=== PATIENT | male | born 1975 | race Two or more races ===

== ENCOUNTER 2022-10-30 14:57 | Emergency (ER) | payer OTHER, SELFPAY ==
--- NOTE | ~2022-10-30 | XR_ITS ---
EXAMINATION: XR WRIST, LEFT CLINICAL INFORMATION: Pain COMPARISON: None available. TECHNIQUE: Four views of the left wrist. FINDINGS: Bone alignment is normal. No fracture or dislocation. Joint spaces are normal. There is a soft tissue swelling adjacent to the ulnar side of the wrist. There is a defect in the soft tissues suggestive of soft tissue trauma. There are several small radiopaque densities in the soft tissues questionable for soft tissue foreign bodies, largest measuring 2 mm. There are clustered round soft tissue densities adjacent to the second metacarpal shaft. XR/XR wrist LT min 3V IMPRESSION: Trauma to the soft tissues on the ulnar side of the wrist and question soft tissue foreign bodies.
[2022-10-30 15:02] VITALS: BP 161/110; PULSE 73; RESP 18; TEMP 36.2; O2SAT 95; BMI 29.7
--- NOTE | 2022-10-30 15:04 | ED_ITS ---
HPI - General Adult General Chief complaint: Wound/Laceration Stated complaint: bleeding open wound Time Seen by Provider: 10/30/22 15:32 Related Data Previous Rx's Medication Instructions Recorded doxycycline hyclate 100 mg capsule 100 mg PO BID #10 caps 10/30/22 Allergies Allergy/AdvReac Type Severity Reaction Status Date / Time No Known Allergies Allergy Verified 10/30/22 15:07 [facility] Social History Social History Advance Directives: No Advance Directives Information Provided: No Physical Exam ED Vital Signs: Vital Signs - 24 hr 10/30/22 15:02 10/30/22 16:45 Temperature 97.2 F 98.2 F Pulse Rate 73 68 Respiratory Rate 18 18 Blood Pressure 161/110 H 152/93 H Pulse Oximetry 95 98 Oxygen Delivery Method Room Air Room Air BMI result Body Mass Index 29.7 Course Course Course Narrative: RME performed by Ban Linton PA-C. Patient is a 47 year old assigned male at presenting to the emergency department with a left wrist laceration. Patient was using a roll grinder when it slipped and caught his left wrist. Patient states that he is having some numbness and tingling in his left pinky. Patient states that he has had 1 shot of alcohol today, not eaten, and is up to date on his tetanus status. Imaging ordered. Patient placed back in the waiting room pending room availability and results. Patient was seen, evaluated, and treated by Becca HOUSER who created and signed her own note. Please refer to her note for the course of this patient's care. Medications Administered Discontinued Medications Generic Name Dose Route Start Last Admin Trade Name Kodyq PRN Reason Stop Dose Admin Bacitracin 1 appl 10/30/22 16:38 10/30/22 16:48 Bacitracin Oint 0.9 Gm Packet TOPICAL 10/30/22 16:39 1 appl ONCE ONE Administration Protocol Lidocaine HCl 5 ml 10/30/22 15:48 10/30/22 16:05 Lidocaine Hcl 1 % Mpf 5 Ml Vial INFILTRATI 10/30/22 15:49 5 ml ONCE ONE Administration Oxycodone HCl 5 mg 10/30/22 15:39 10/30/22 15:45 Oxycodone Hcl Immed Release 5 Mg Tablet PO 10/30/22 15:40 5 mg ONCE ONE Administration Discharge Plan Discharge Clinical Impression: Laceration of left wrist Qualifiers: Encounter type: initial encounter Qualified Code(s): S61.512A - Laceration without foreign body of left wrist, initial encounter Patient Disposition: Home, Self-Care Instructions: Laceration (DC) Additional Instructions: You have been evaluated in the emergency department today for two lacerations to your left wrist. Your lacerations were repaired in the emergency department with sutures. Please keep the area surrounding the laceration clean and dry and keep dressing in place for the next 24 hours. After that please change the dressing and assess the wound daily. Keep the area out of direct sunlight for the next 6 months to help prevent scarring. You should have the sutures removed in 7-10 days. If you develop fever, redness, swelling at the site of your laceration, or thick yellow drainage please come back to the ER for a wound check. Please contact the orthopedic office within two days for a follow up appointment. You are being prescribed prophylactic antibiotics to prevent infection. Please complete the full course of antibiotics as prescribed. Prescriptions: New doxycycline hyclate 100 mg capsule 100 mg PO BID Qty: 10 0RF Referrals: [facility] [Provider Group] Interventions: ED Discharge Assessment Last Done: 10/30/22 17:34 Discharge Date/Time: 10/30/22 17:35
[2022-10-30] MEDS: oxyCODONE HCl Immed Release 5 MG TABLET PO (15:45)
[2022-10-30] MEDS: Lidocaine HCl 1 % MPF 5 ML VIAL INFILTRATI (16:05)
--- NOTE | 2022-10-30 16:05 | PC.NURSE ---
report given to Nadia, RN pt transported to ED 21 call avila within reach
--- NOTE | 2022-10-30 16:18 | PC.NURSE ---
pt wound was irrigated and cleased with NS and betadine, pt medicated with 5mg oxycodone for 10/10 pain- suture setup at bedside
--- NOTE | 2022-10-30 16:39 | ED_ITS ---
HPI - Wound/Laceration General Chief Complaint: Wound/Laceration Stated Complaint: bleeding open wound Time Seen by Provider: 10/30/22 15:32 Source: patient Mode of arrival: ambulatory Limitations: no limitations History of Present Illness HPI narrative: Patient is a 47-year-old male presenting to the emergency department with injury to left wrist. He states that he was using an angle cutter grinder to saw a rusted miya t off of his wheel so that he could change his tire when the angle cutter grinder slipped and hit him in the wrist. States that he wrapped his arm in a shirt. Reports some numbness to lateral aspect of left hand as well as dorsal surface and lateral surface of left 5th finger. Denies decreased range of motion. States his last tetanus shot was a few months ago with his PCP. Denies any other injuries. Onset (ago): minute(s) Extremity Location: left: wrist Place: home Patient tetanus UTD: Yes Context: accidental Associated symptoms: pain and loss of feeling/numbness Treatments prior to arrival: bandage Related Data Previous Rx's Medication Instructions Recorded doxycycline hyclate 100 mg capsule 100 mg PO BID #10 caps 10/30/22 Allergies Allergy/AdvReac Type Severity Reaction Status Date / Time No Known Allergies Allergy Verified 10/30/22 15:07 Review of Systems Review of Systems: As per HPI. Yes all other systems are reviewed and are negative Constitutional: Constitutional: Reports as per HPI [facility] Social History Social History Advance Directives: No Advance Directives Information Provided: No Physical Exam Vital Signs: Vital Signs: Last Vital Signs Temp 97.2 F 10/30/22 15:02 Pulse 73 10/30/22 15:02 Resp 18 10/30/22 15:02 BP 161/110 H 10/30/22 15:02 Pulse Ox 95 10/30/22 15:02 O2 Del Method Room Air 10/30/22 15:02 BMI result Body Mass Index 29.7 Vital signs have been reviewed and appear to be correct. Blood pressure elevated,likely secondary to pain. Heart rate normal. Respiratory rate normal. Temperature normal. Oxygen saturation normal. Const: General: cooperative, healthy appearing and no acute distress [place] ation/consciousness: oriented to person, oriented to place, oriented to time and patient oriented x3 Limitations: no limitations HEENT: Head: Yes normocephalic and Yes atraumatic Ears: external ears normal General nose exam: Normal external nose present Face and sinus: Yes face symmetric Mouth: oropharynx normal and moist mucous membranes Throat: Yes uvula midline Eyes: Pupils: Equal, round and reactive pupils present Neck: Neck: Yes normal visual inspection and Yes supple Resp: Effort & Inspection: normal respiratory effort and able to speak in complete sentences Auscultation: clear to auscultation bilaterally Cardio: Rate: regular rate Rhythm: regular rhythm Heart sounds: S1 normal heart sound present and S2 normal heart sound present GI: Palpation (GI): Soft to palpation and nontender Auscultation: normoactive bowel sounds : General: Yes no CVA tenderness Back/Spine/Pelvis: Back: no CVA tenderness Skin: General skin exam: elasticity normal and turgor normal Trauma: laceration left lateral wrist linear, involves subcutaneous tissue, motor nerve function intact and sensation intact (decreased sensation as documented under extremities section; 3cm laceration and 1.5cm laceration) Neuro: General: oriented to person, oriented to place, oriented to time, patient oriented x3, moves all extremities, no focal motor deficits and CN's II- XI intact bilaterally Cranial nerves: Yes Equal, round and reactive pupils present Cognition (Neuro): normal cognition Extrem: General: Yes full ROM, Yes no pedal edema and Yes no calf tenderness Left upper extremity: wrist (lacerations/abrasion) and hand Details: normal to inspection, normal capillary refill, neuromotor exam normal, neurosensory exam abnormal Details: ulnar nerve sensory function abnormal Details: decreased light touch sensation (lateral aspect of left hand) and digital nerve sensory function abnormal Location: in the 5th digit (dorsal and lateral aspect of finger), tendon exam normal and normal ROM of fingers Psych: Mental Status: mental status grossly normal Affect: normal affect Thought process: Normal thought process present Medications Administered Discontinued Medications Generic Name Dose Route Start Last Admin Trade Name Freq PRN Reason Stop Dose Admin Lidocaine HCl 5 ml 10/30/22 15:48 10/30/22 16:05 Lidocaine Hcl 1 % Mpf 5 Ml Vial INFILTRATI 10/30/22 15:49 5 ml ONCE ONE Administration Oxycodone HCl 5 mg 10/30/22 15:39 10/30/22 15:45 Oxycodone Hcl Immed Release 5 Mg Tablet PO 10/30/22 15:40 5 mg ONCE ONE Administration Medical Decision Making Medical Decision Making [facility] Narrative: Patient is a 47-year-old male presenting to the emergency department with injury to left wrist. On exam patient is awake, A+Ox3, VS WNL, afebrile, normal neurological exam without focal deficits, 2 lacerations to ulnar aspect of left wrist, proximal laceration 1.5 cm and superficial, distal laceration 3cm and involves subcutaneous layer, minor abrasion between lacerations, decreased light touch sensation to dorsal and lateral aspect of 5th finger and lateral edge of left hand. Given reported symptoms and physical exam findings, initial differential includes laceration, abrasion, fracture. X-ray notable for soft tissue trauma,no fracture or dislocation. My interpretation is in agreement with the radiologist's interpretation. Lacerations repaired as per procedure notes. Tetanus did not need to be updated at today's visit. Will refer patient to Orthopedics for follow-up. Return precautions discussed at bedside. Patient instructed to follow-up with PCP as well. Differential Diagnosis Differential Diagnoses: The differential diagnosis associated with the presentation includes As per MDM. Admission/Observation Consideration of admission/observation: Escalation of care including a dmission/observation considered Considered on arrival given extent of injury. Independent Interpretation I performed an independent interpretation of an: Plain X-Ray Interpretation: Soft tissue trauma on ulnar side of left wrist and no fracture dislocation Radiology Impression Discussion of test interpretation with radiology: I have reviewed the radiologist's reading. Radiologist Impression: FINDINGS: Bone alignment is normal. No fracture or dislocation. Joint spaces are normal. There is a soft tissue swelling adjacent to the ulnar side of the wrist. There is a defect in the soft tissues suggestive of soft tissue trauma. There are several small radiopaque densities in the soft tissues questionable for soft tissue foreign bodies, largest measuring 2 mm. There are clustered round soft tissue densities adjacent to the second metacarpal shaft.? XR/XR wrist LT min 3V IMPRESSION: Trauma to the soft tissues on the ulnar side of the wrist and question soft tissue foreign bodies. ? External Record Review External record reviewed: Inpatient record, Office record and Outpatient record Prescription Management I considered prescription management with: Pain Medication and Antibiotic Procedures Laceration Laceration 1: Site: upper extremity Side (If applicable): left Size (cm): 3 Description: linear Depth: simple, single layer Local Anesthetic: lidocaine 1% Amount of anesthesia used (mL): 3 Pre-repair: wound explored, irrigated extensively and deep structures intact Skin layer closed with: other (prolene) Size (cm): 5-0 Number of sutures: 7 Technique: simple, interrupted Laceration 2: Site: upper extremity Side (If applicable): left Size (cm): 1.5 Description: linear Depth: simple, single layer Local Anesthetic: lidocaine 1% Amount of anesthesia used (mL): 1 Pre-repair: wound explored, irrigated extensively and deep structures intact Skin layer closed with: other (prolene) Size (cm): 5-0 Number of sutures: 3 Technique: simple, interrupted Discharge Plan Discharge Clinical Impression: Laceration of left wrist Qualifiers: Encounter type: initial encounter Qualified Code(s): S61.512A - Laceration without foreign body of left wrist, initial encounter Patient Disposition: Home, Self-Care Instructions: Laceration (DC) Additional Instructions: You have been evaluated in the emergency department today for two lacerations to your left wrist. Your lacerations were repaired in the emergency department with sutures. Please keep the area surrounding the laceration clean and dry and keep dressing in place for the next 24 hours. After that please change the dressing and assess the wound daily. Keep the area out of direct sunlight for the next 6 months to help prevent scarring. You should have the sutures removed in 7-10 days. If you develop fever, redness, swelling at the site of your laceration, or thick yellow drainage please come back to the ER for a wound check. Please contact the orthopedic office within two days for a follow up appointment. You are being prescribed prophylactic antibiotics to prevent infection. Please complete the full course of antibiotics as prescribed. Prescriptions: New doxycycline hyclate 100 mg capsule 100 mg PO BID Qty: 10 0RF Referrals: [facility] [Provider Group]
[2022-10-30 16:45] VITALS: BP 152/93; PULSE 68; RESP 18; TEMP 36.8; O2SAT 98
[2022-10-30] MEDS: Bacitracin Oint 0.9 GM PACKET 1 APPL TOPICAL (16:48)
== END 2022-10-30 17:35 | disposition home or self-care (01) ==
PROVIDERS: Emergency Provider Emergency Medicine
DX: S61.512A Laceration without foreign body of left wrist, initial encounter (principal); W31.89XA Contact with other specified machinery, initial encounter; Y93.9 Activity, unspecified; Y92.9 Unspecified place or not applicable; Y99.9 Unspecified external cause status
CPT/HCPCS: 12002; 73110; 99284

== ENCOUNTER 2022-11-10 10:09 | Outpatient (AMB) | payer OTHER, SELFPAY ==
[2022-11-10 10:13] VITALS: BMI 29.6
--- NOTE | 2022-11-10 10:13 | A.OFFVIS_ITS ---
Intake Vital Signs 11/10/22 10:13 Height 5 ft 7 in Weight 189 lb BMI 29.6 Handedness Right Intake Visit Reasons: New Pt - Lt Wrist Pain, DOI 10/30/22 Intake Note: Douglas is a 47 year old right hand dominant male who presents today as a new patient for a evaluation for his left wrist pain, DOI 10/30/22. Patient reports using an angle roll contour grinder to saw a rusted bolt off of his wheel so that he could change his tire when the angle roll contour grinder slipped it hit his left wrist. He states some tingling near the injured area. Allergies No Known Allergies Allergy (Verified 11/10/22 10:15) HPI New Pt - Lt Wrist Pain, DOI 10/30/22 HPI Details 47-year-old right hand dominant male who presents in the office today, as a new patient, for an evaluation of left wrist lacerations. The patient presented to the ED on 10/30/2022 status post using an angle roll contour grinder that slipped on the rusted bolt hitting his wrist. The lacerations wounds were explored, irrigated extensively and deep structures intact. He was prescribed doxycycline hyclate 100 mg PO BID. He confirms tingling near the injury site. Laceration one: 3 cm linear with 7 sutures, reported by the ED. Laceration two: 1.5 cm linear with 3 sutures, reported by the ED. [facility] Social History (Updated 11/10/22 @ 10:16 by Bienvenido Corrales) Alcohol intake: current Patient Tobacco Use Status: Former Tobacco user Current occupational status: employed Current occupation: maintenance/ right hand dominant Review of Systems Const All systems reviewed & are unremarkable except as noted in HPI and below Physical Exam Vital Signs: BMI result Body Mass Index 29.6 Const General: cooperative and no acute distress Orientation/consciousness: patient oriented x3 Resp Effort & Inspection: normal respiratory effort and able to speak in complete sentences Cardio Peripheral pulses: Peripheral pulses 2+ throughout Skin General skin exam: no rashes or lesions noted Neuro General: patient oriented x3 Extrem Other: Left wrist: Two laceration sites along the lateral aspect of the wrist on the ulnar side. Laceration one is roughly 1.5cm and contains 3 sutures. Laceration t wo is roughly 3cm in length. No erythema or drainage. No signs of infection. Able to flex and extend, ulnar and radial deviation. Left hand: Normal to inspection. No ecchymosis, erythema, or edema. Able to perform full finger flexion, extension, abduction, adduction, finger cross, okay sign, and thumbs up without deficit. Able to make a closed fist. Sensation intact. Capillary refill is brisk. Radial pulse intact. Assessment & Plan Assessment & Plan (1) Laceration of left wrist: Code(s): S61.512A - Laceration without foreign body of left wrist, initial encounter Qualifiers: Encounter type: initial encounter Qualified Code(s): S61.512A - Laceration without foreign body of left wrist, initial encounter Plan Mr. Braden is a 47-year-old right hand dominant male who presents in the office today, as a new patient, for an evaluation of left wrist lacerations. The patient presented to the ED on 10/30/2022 status post using an angle roll contour grinder that slipped on the rusted bolt hitting his wrist. The lacerations wounds were explored, irrigated extensively and deep structures intact. He was prescribed doxycycline hyclate 100 mg PO BID. He confirms tingling near the injury site. Laceration one: 3 cm linear with 7 sutures, reported by the ED. Laceration two: 1.5 cm linear with 3 sutures, reported by the ED. The first laceration sutures will remain intact. The second laceration sutures will be removed every other one. The remain sutures in the second laceration will remain intact. He was educated on signs of infection, which are as follows but not limited to erythema, edema, drainage, or warmth. If he is to experience any of these symptoms he is to contact the office immediately or present to the ED. Follow up will be in 1 week with anticipation of removal of remaining sutures, or sooner if needed. X-rays of the left wrist, obtained on 10/30/2022, revealed: Trauma to the soft tissues on the ulnar side of the wrist and question soft tissue foreign bodies. Patient Instructions: Scribed for Hiral Jacob PA-C by Sherrell Pang special forces medical sergeant, on 11/10/2022 at 10:11 am, EST. Your attestation Coding Level of Care Code New Pt Level 3 (09447) Diagnoses Laceration of left wrist S61.512A Encounter type: initial encounter
== END 2022-11-10 10:37 | disposition home or self-care (01) ==
PROVIDERS: Visit Provider Physician Assistant
DX: S61.512A Laceration without foreign body of left wrist, initial encounter (principal)
CPT/HCPCS: 99203

== ENCOUNTER → 2022-11-10 10:09 | Outpatient (BNVA) | payer OTHER, SELFPAY | PROVIDERS: Visit Provider Physician Assistant | DX: S61.512A Laceration without foreign body of left wrist, initial encounter (principal) | CPT/HCPCS: 99202 ==

== ENCOUNTER 2022-11-16 13:55 | Outpatient (AMB) | payer OTHER, SELFPAY ==
--- NOTE | 2022-11-16 13:57 | MHC.OFFVIS ---
Intake Vital Signs 11/16/22 14:02 Height 5 ft 7 in Weight 189 lb BMI 29.6 Handedness Right Intake Visit Reasons: Lt Wrist Pain, DOI 10/30/22 Intake Note: Douglas is a 47 year old right hand dominant male who presents today for his 1 week follow up for his left wrist pain, DOI 10/30/22. Patient reports some itching and sharp pain. He states that he is having numbness on the dorsal aspect of the ring and pinky finger per patient. Patient states having tingling near the injury. Allergies No Known Allergies Allergy (Verified 11/10/22 10:15) HPI Lt Wrist Pain, DOI 10/30/22 HPI Details Douglas is a 47 year old right hand dominant male who presents today as a new patient for a evaluation for his left wrist pain, DOI 10/30/22. Patient reports using an angle pulp grinder and blender to saw a rusted bolt off of his wheel so that he could change his tire when the angle pulp grinder and blender slipped it hit his left wrist. At his last appt on 11/10/22 some of the sutures were removed. He has completed all antibiotics. Denies any increase in redness, swelling, drainage, warmth or pain. [facility] Social History Alcohol intake: current Patient Tobacco Use Status: Former Tobacco user Current occupational status: employed Current occupation: maintenance/ right hand dominant Review of Systems Const All systems reviewed & are unremarkable except as noted in HPI and below Physical Exam Vital Signs: BMI result Body Mass Index 29.6 Const General: cooperative, healthy appearing and no acute distress Orientation/consciousness: patient oriented x3 Resp Effort & Inspection: normal respiratory effort and able to speak in complete sentences Cardio Rate: regular rate Peripheral pulses: Peripheral pulses 2+ throughout GI Palpation (GI): Soft to palpation Skin General skin exam: no rashes or lesions noted Lesions: no lesions Rashes: no rashes Neuro General: patient oriented x3 Extrem Other: Left wrist: Two laceration sites along the lateral aspect of the wrist on the ulnar side. Laceration one is roughly 1.5cm and contains 3 sutures. Laceration two is roughly 3cm in length. No erythema or drainage. No signs of infection. Able to flex and extend, ulnar and radial deviation. Left hand: Normal to inspection. No ecchymosis, erythema, or edema. Able to perform full finger flexion, extension, abduction, adduction, finger cross, okay sign, and thumbs up without deficit. Able to make a closed fist. Sensation intact. Capillary refill is brisk. Radial pulse intact. Assessment & Plan Assessment & Plan (1) Laceration of left wrist: Code(s): S61.512A - Laceration without foreign body of left wrist, initial encounter Qualifiers: Encounter type: initial encounter Qualified Code(s): S61.512A - Laceration without foreign body of left wrist, initial encounter Plan Douglas is a 47 year old right hand dominant male who presents today as a new patient for a evaluation for his left wrist pain, DOI 10/30/22. Patient reports using an angle pulp grinder and blender to saw a rusted bolt off of his wheel so that he could change his tire when the angle pulp grinder and blender slipped it hit his left wrist. At his last appt on 11/10/22 some of the sutures were removed. He has completed all antibiotics. Denies any increase in redness, swelling, drainage, warmth or pain. The remained of the sutures were removed in the office today. I educated the patient on any signs of infection which include but are not limited to increase in redness, swelling, drainage, warmth or pain he should contact our office immediately or report to the ED for evaluation. Patient understands and accepts. Follow-up is prn, sooner if needed. Coding Level of Care Code Est Pt Level 3 (31602) Diagnoses Laceration of left wrist S61.512A Encounter type: initial encounter
[2022-11-16 14:02] VITALS: BMI 29.6
== END 2022-11-16 14:18 | disposition home or self-care (01) ==
PROVIDERS: Visit Provider Physician Assistant
DX: S61.512A Laceration without foreign body of left wrist, initial encounter (principal)
CPT/HCPCS: 99213

== ENCOUNTER → 2022-11-16 13:55 | Outpatient (BNVA) | payer OTHER, SELFPAY | PROVIDERS: Visit Provider Physician Assistant | DX: M25.532 Pain in left wrist (principal); S61.512A Laceration without foreign body of left wrist, initial encounter; W31.1XXA Contact with metalworking machines, initial encounter; Y93.89 Activity, other specified; Y92.9 Unspecified place or not applicable; Y99.9 Unspecified external cause status | CPT/HCPCS: 99212 ==

== ENCOUNTER 2023-01-14 08:32 | Outpatient (REF) | payer OTHER, SELFPAY | END 2023-01-14 08:33 | disposition home or self-care (01) | LOC: HO.HOSX 08:32 | PROVIDERS: Visit Provider Physician Assistant | DX: M17.12 Unilateral primary osteoarthritis, left knee (principal) | CPT/HCPCS: 73560; 73565; 99212 ==

== ENCOUNTER 2023-01-14 09:20 | Outpatient (AMB) | payer OTHER, SELFPAY ==
[2023-01-14 09:25] VITALS: BMI 29.6
--- NOTE | 2023-01-14 09:25 | MHC.OFFVIS ---
Intake Vital Signs 01/14/23 09:25 Height 5 ft 7 in Weight 189 lb BMI 29.6 Intake Visit Reasons: New Prob- Lt knee pain Intake Note: Douglas is a 47 year old male who presents today as a new patient for a evaluation of his left knee pain, L ACL REPAIR, 04/23/11 KI. Patient reports he played basket ball about 3 weeks ago, he landed wrong and he felt a sharp pain in his left knee. Pain is on both sides of the knee per patient. He reports his pain is worse when sitting down. Allergies No Known Allergies Allergy (Verified 01/14/23 09:25) HPI New Prob- Lt knee pain HPI Details 47-year-old right hand dominant male who presents in the office today for an evaluation of left knee pain. The patient reports he was playing basketball about 3 weeks ago, when he landed wrong and felt a sharp pain in the left knee. He states the pain is on both sides of the knee. He states the pain increases with sitting down. He states the knee has been getting better since injuring the left knee. He has a surgical history of a left knee ACL repair on 04/23/[address] Shook. [facility] Social History Alcohol intake: current Patient Tobacco Use Status: Former Tobacco user Current occupational status: employed Current occupation: maintenance/ right hand dominant Review of Systems Const All systems reviewed & are unremarkable except as noted in HPI and below Physical Exam Vital Signs: BMI result Body Mass Index 29.6 Const General: cooperative and no acute distress Orientation/consciousness: patient oriented x3 Resp Effort & Inspection: normal respiratory effort and able to speak in complete sentences Cardio Peripheral pulses: Peripheral pulses 2+ throughout Skin General skin exam: no rashes or lesions noted Neuro General: patient oriented x3 Extrem Other: Left knee: Normal to inspection. No ecchymosis, erythema, or joint effusion. Mild tenderness to palpation to the medial or lateral joint lines. Full knee extension and flexion. Negative Rissa's. Negative anterior drawer. NVI. Assessment & Plan Assessment & Plan (1) Osteoarthritis of left knee: Code(s): M17.12 - Unilateral primary osteoarthritis, left knee Qualifiers: Osteoarthritis type: unspecified Qualified Code(s): M17.12 - Unilateral primary osteoarthritis, left knee Plan Mr. Braden is a 47-year-old right hand dominant male who presents in the office today for an evaluation of left knee pain. The patient reports he was playing basketball about 3 weeks ago, when he landed wrong and felt a sharp pain in the left knee. He states the pain is on both sides of the knee. He states the pain increases with sitting down. He states the knee has been getting better since injuring the left knee. He has a surgical history of a left knee ACL repair on 04/23/[address] Shook. I discussed the role of physical therapy to work on ROM and strengthening of the left knee. He has agreed to attend. Should the knee not continue to improve we might consider an MRI. In the event his symptoms have resolved he can call and cancel his follow up appointment. Follow up will be in 6 weeks, or sooner if needed. X-rays of the left knee obtained while in the office today and reviewed by me, Hiral Jacob PA-C, revealed no evidence of acute fracture of dislocation. Revealed osteoarthritis. Orders: Orders XR knee LT 2V Today M25.569 - Pain in unspecified knee XR knee standing BI Today M25.569 - Pain in unspecified knee Patient Instructions: Scribed for Hiral Jacob PA-C by Sherrell Pang director of medical review, on 01/14/2023 at 9:22 am, EST. Coding Level of Care Code Est Pt Level 3 (70998) Diagnoses Osteoarthritis of left knee, unspecified osteoarthritis type M17.12 Osteoarthritis type: unspecified
== END 2023-01-14 09:57 | disposition home or self-care (01) ==
PROVIDERS: Visit Provider Physician Assistant
DX: M17.12 Unilateral primary osteoarthritis, left knee (principal)
CPT/HCPCS: 99213

== ENCOUNTER 2023-09-26 21:09 | Inpatient (IN) | payer OTHER, SELFPAY ==
--- NOTE | ~2023-09-26 | XR_ITS ---
EXAMINATION: XR SHOULDER, RIGHT CLINICAL INFORMATION: Pain. COMPARISON: None available. TECHNIQUE: Single frontal view of the right shoulder. FINDINGS: The bones and soft tissues are normal. No fracture. Glenohumeral and acromioclavicular alignment is anatomic with normal joint space. No abnormal soft tissue calcifications. XR/XR shoulder RT 1V IMPRESSION: Normal right shoulder.
--- NOTE | ~2023-09-26 | MR_ITS ---
EXAMINATION: MR BRAIN WITHOUT AND WITH CONTRAST CLINICAL INFORMATION: Fall. Seizure. COMPARISON: None available. TECHNIQUE: MRI of the brain was obtained using routine sequences without and following the administration of 9 mL of Gadavist intravenous contrast. FINDINGS: No focal restricted diffusion is demonstrated to suggest acute or subacute cerebral ischemia. No evidence of acute or chronic hemorrhagic products on heme-sensitive imaging. The nonspecific scattered periventricular and deep white matter T2 FLAIR hyperintensities. The ventricles are normal in morphology and size. No abnormal mass effect. No midline shift. The hippocampi are symmetric in size, contour, and signal intensity. The temporal horns appear symmetric. Normal appearance of the pituitary gland. Normal positioning of the cerebellar tonsils. Normal arterial and venous vascular flow voids are present. No abnormal contrast enhancement. Normal, homogeneous marrow signal. Mild mucosal thickening of the paranasal sinuses. No signal abnormalities within the mastoids. MR/MR head/brain wo/w con IMPRESSION: 1. No acute intracranial abnormalities. No abnormal intracranial enhancement. 2. Mild nonspecific white matter changes. 3. No additional MRI abnormalities to explain the patient's spells.
[2023-09-26 21:13] VITALS: BP 118/86; PULSE 100; O2SAT 96
--- NOTE | 2023-09-26 21:26 | ED.GENADULT ---
HPI - General Adult General Stated complaint: Seizures Time Seen by Provider: 09/26/23 21:13 Source: patient and EMS Mode of arrival: EMS Limitations: no limitations History of Present Illness ED Provider: Dr. Mariaelena Daly HPI narrative: patient comes to the emergency room from [facility] in [place]. earlier today in the morning, patient was the bleachers watching his son play soccer. As patient was sitting, he had tonic-clonic seizure, hit the bleachers With his right upper leg. seems that patient rolled down four levels of bleachers. patient did hit his head, patient was still seizing. patient did have a postictal state. Patient is not on any blood thinners per patient and family. patient states that he has no history of seizures in the past, this is the 1st time that he has a seizure During adulthood. Patient states that he drinks alcohol 1 or 2 beers maybe twice a week. However, earlier today I spoke with the ED physician at [facility] in [place], the patient's was present and reported that the patient is a Daily heavy alcohol drinker, and he may not have been drinking for the last couple of days due to the trip to [place]. After the 1st tonic-clonic seizure, patient was transferred to the hospital in [place], patient was silvestre scanned, head CT neck CT chest abdomen pelvis within normal limits. Also a CT scan of the right leg was done since the patient had pain and the thigh seemed tense, which showed large breasts hematoma without fracture and compartment syndrome not suspected. Patient states that he did have a seizure when he was a child due to heat . in [place], the ED physician tried admitting the patient to their facility. However, due to lack of Neurology back up, the hospitalist requested to have the patient transfer. The family requested to have the patient transferred to [facility] since the family leaves in [place] and they do not have the means to keep going back and forth [place] and [place]. It is believed that the patient may have had an alcohol withdrawal seizure. after speaking with Dr. Peraza from the ED in [place] and confirming our inpatient bed situation with our charge nurse, I accepted the transfer. At this time, patient is awake, alert and oriented x3, states that he has pain in the upper leg but it is tolerable Related Data Home Medications ?Medication ?Instructions ?Recorded ?Confirmed No Known Home Meds 11/10/22 11/10/22 Allergies Allergy/AdvReac Type Severity Reaction Status Date / Time No Known Allergies Allergy Verified 09/26/23 21:29 Review of Systems Review of Systems: Constitutional : No Weight loss, No Fever, No Chills, No Night Sweats, No Fatigue, No Malaise ENT/Mouth : No Hearing loss, No Ear Pain, No Nasal Congestion, No Sinus Pain, No Hoarseness, No sore throat, No Rhinorrhea, No Swallowing Difficulty Eyes: No Eye Pain, No Swelling, No Redness, No Foreign Body, No Discharge, No Vision Changes Cardiovascular : No Chest Pain, No SOB, No Dyspnea on Exertion, No Orthopnea, No Edema, No Palpitations Respiratory : No Cough, No Sputum, No Wheezing, No Smoke Exposure, No Dyspnea Gastrointestinal : No Nausea, No Vomiting, No Diarrhea, No Constipation, No abdominal Pain, No Hematochezia, No Melena Genitourinary : no irregular bleeding, No Dysuria, No Urinary Frequency, No Hematuria, No Urinary Incontinence, No Urgency, No Flank Pain, No Urinary Flow Changes, No Hesitancy Musculoskeletal : complaining of right upper thigh pain Skin : No Skin Lesions, No rash Neuro : No Weakness, No Numbness, No Paresthesias, No Loss of Consciousness, No Dizziness, No Headache complaining of 2 seizures earlier today Psych : No Anxiety/Panic, No Depression, No SI/HI/AH/VH, No Social Issues, Heme/Lymph: No Bruising, No Bleeding,No Lymphadenopathy Endocrine : No Polyuria, No Polydipsia, No Temperature Intolerance [facility] Past Medical History Medical History Alcohol abuse Social History Social History Alcohol intake: current Alcohol intake frequency: 3 or more drinks per day Alcohol type: wine and hard liquor Patient Tobacco Use Status: Former Tobacco user Current occupational status: employed Current occupation: maintenance/ right hand dominant Physical Exam ED Const Other: Appearance: Alert. Oriented X3. No acute distress. Eyes: Pupils equal, round and reactive to light. ENT: Pharynx normal. Neck: Normal inspection. Neck supple. No lymph nodes noted. No crepitus CVS: Normal heart rate and rhythm. Pulses normal. Normal S1 and S2 Respiratory: No respiratory distress. Breath sounds normal. No Wheezing. No rales Abdomen: Soft and nontender. No rigidity. No distention. Skin: Skin warm and dry. Normal skin color. Normal skin turgor. small ecchymosis and abrasion to the forehead Extremities: patient's left leg is tense, however patient has no numbness tingling or pain below the thigh, compartment syndrome is not suspected at this time Neuro: Oriented X 3. No motor deficit. No sensory deficit. Moving all extremities. No slurred speech. CN 2 through 12 grossly intact Psych: calm, cooperative, normal affect Course Course Course Narrative: - earlier today in the hospital in [place], patient received 4 mg of Ativan and 1500 mg of Keppra - since then, patient has not had any tonic-clonic seizures. - Patient was started on phenobarb protocol - I discussed the patient with Dr. Montenegro, patient being admitted - we will obtain our own set of labs. - Medical Decision Making Medical Decision Making [facility] Narrative: - CT scan of the leg from previous hospital shows a 15.6 x 6.8 x 4.6 cm intramuscular hematoma within the vastus intermedius muscle at the anterior right thigh - I reviewed the images from the CD the previous hospital sent us and the radiology report: head CT , cervical spine CT, abdomen pelvis CT do not show any acute abnormality. I reviewed the patient's chest x-ray: No fractures or suspicion for pulmonary contusions - patient has been started on the phenobarb protocol - patient has pain to palpation on the right upper thigh. However, it has not extremity tense to suspect compartment syndrome, no pain numbness or tingling below the thigh in the right distal extremity - Dr. Montenegro accepted the patient Differential Diagnosis Differential Diagnoses: The differential diagnosis associated with the presentation includes ( first-time seizure, alcohol withdrawal seizure) Admission/Observation Consideration of admission/observation: Escalation of care including admission/observation considered Consult Healthcare Provider Management of the patient was discussed with: Hospitalist Lab Data [facility] Lab Attestation statement: I reviewed the patient's lab results. Independent Interpretation I performed an independent interpretation of an: CT Scan Radiology Impression Discussion of test interpretation with radiology: I have reviewed the radiologist's reading. Independent Historian Clinical information obtained from an independent historian. History obtained from or confirmed by: EMS and Other ( ED physician from [place]) Discharge Plan Discharge Clinical Impression: Alcohol withdrawal seizure, Hematoma of right thigh Patient Disposition: Admitted As Inpatient Prescriptions: No Action No Known Home Meds Print Language: Peruvian
[2023-09-26 21:27] VITALS: BP 149/92; PULSE 109; RESP 22; TEMP 37.4; O2SAT 98; BMI 31.1
--- OUTSIDE RECORDS SUMMARY | 2023-09-26 21:39 | XMS_ITS | Continuity of Care Document ---
Author Organization [facility] ter Address [address] [place] [address]- Care Team Providers Care Pulling Unit Operator Name Role Phone Kalyan HOUSER, Ally Pavon Primary Care Physician Encounter [facility] [id number] Date(s): 02/15/23 - 08/22/[address] [address]- Attending Physician: Jasbir Baer MD Admitting Physician: Jasbir Baer MD Allergies, Adverse Reactions, Alerts No Known Allergies Immunizations Given and Recorded Vaccine Date Status Refusal Reason tetanus/diphtheria/pertussis, acel(Tdap) 1 07/24/22 Given 1Result Comment: Tdap [facility]#[id number] Medications PEG-3350 with Electrolytes (Eqv-GoLYTELY) oral powder for reconstitution 240 mL, By Mouth, Every 15 minutes, Split prep method. 1/2 gallon evening prior to colonscopy and 1/2 gallon 6h prior to start of colonoscopy, # 4,000 mL, 0 Refills, Maintenance, 07/14/23 10:37:00 EDT, [id number], Colonosopy Date: .. Start Date: 07/14/23 Status: Ordered Problem List Condition Confirmation Course Effective Dates Status Health St atus Informant Mild atopic dermatitis Confirmed Active Rash of body Confirmed Active High blood pressure determined by examination Confirmed Active Physical exam Confirmed Active Social History Social History Type Response Smoking Status Never (less than 100 in lifetime) entered on: 07/24/22 Sex Patient Care team information Care Team Personnel Name: Ally Biggs NP Position: [facility] PCO Associate Professional Member Role: PCP Address: Address: [address] [place] [address]- Care Team Related Persons Name: RIANA MAGDALENO Address: home [address] [place] [address]
--- OUTSIDE RECORDS SUMMARY | 2023-09-26 21:39 | XMS_ITS | Continuity of Care Document ---
Author Organization [facility] Address [address] [place] [address]- Care Team Providers Care Fisher Spear Name Role Phone Kalyan HOUSER, Ally Pavon Primary Care Physician Encounter [facility] Date(s): 12/30/22 - 03/20/[address] [address] [place] Attending Physician: Jacqueline Story MD Admitting Physician: Jacqueline Story MD Allergies, Adverse Reactions, Alerts No Known Allergies Immunizations Given and Recorded Vaccine Date Status Refusal Reason tetanus/diphtheria/pertussis, acel(Tdap) 1 07/24/22 Given 1Result Comment: Tdap [facility]#[id number] Medications PEG-3350 with Electrolytes (Eqv-GoLYTELY) oral powder for reconstitution See Instructions, split prep method. drink one half the night before procedure at 5pm. drink secondhalf morning of procedure. must finish no later than 3 hours prior to procedure., # 4,000 mL, 0 Refills, Maintenance, 12/31/22 15:20:00 VALERIA BREEN... Start Date: 12/31/22 Status: Ordered Problem List Condition Confirmation Course [...] Associate Professional Member Role: PCP Address: Address: [address] [place] [address]- Care Team Related Persons Name: RIANA MAGDALENO Address: home [address] [place] [address]
--- OUTSIDE RECORDS SUMMARY | 2023-09-26 21:39 | XMS_ITS | Continuity of Care Document ---
Author Organization [facility] New Address [address] [place] [address]- Care Team Providers Care Junior High Math Teacher Name Role Phone Sarai Brunson NP Primary Care Physician [phone] Encounter [facility] Date(s): 07/24/22 - 08/23/22 [facility] Adult [address] [place] [address]- Attending Physician: Admtr, Ar8 Admitting Physician: Admtr, Ar8 Referring Physician: Admtr, Ar8 Allergies, Adverse Reactions, Alerts No Known Allergies Immunizations Given and Recorded Vaccine Date Status Refusal Reason tetanus/diphtheria/pertussis, acel(Tdap) 1 07/24/22 Given 1Result Comment: Tdap [facility]#[id number] Social History Social History Type Response Smoking Status Never (less than 100 in lifetime) entered on: 07/24/22 Sex Patient Care team information Care Team Personnel Name: Sarai Brunson NP Position: S PCO Associate Professional Member Role: PCP Address: Address: [address] [place] [address] [place] [address]- Care Team Related Persons Name: RIANA MAGDALENO Address: home [address] [place] [address]
--- OUTSIDE RECORDS SUMMARY | 2023-09-26 21:39 | XMS_ITS | Continuity of Care Document ---
Author Organization [facility] New Address [address] [place] [address]- Care Team Providers Care Handy Man Name Role Phone Sarai Brunson NP Primary Care Physician [phone] Encounter [facility] Date(s): 06/15/22 - 08/23/22 [facility] Adult [address] [place] [address]- Attending Physician: Sarai Brunson NP Allergies, Adverse Reactions, Alerts No Known Allergies Immunizations Given and Recorded Vaccine Date Status Refusal Reason tetanus/diphtheria/pertussis, acel(Tdap) 1 07/24/22 Given 1Result Comment: Tdap [facility]#[id number] Social History Social History Type Response Smoking Status Never (less than 100 in lifetime) entered on: 07/24/22 Sex Patient Care team information Care Team Personnel Name: Sarai Brunson NP Position: S PCO Associate Professional Member Role: PCP Address: Address: [address] [place] [address] [place] [address]- Care Team Related Persons Name: RIANA MAGDALENO Address: home [address] [place] [address]
--- OUTSIDE RECORDS SUMMARY | 2023-09-26 21:39 | XMS_ITS | Continuity of Care Document ---
Author Organization [facility] Address [address] [place] [address]- Care Team Providers Care Manager House Name Role Phone Kalyan HOUSER, Ally Pavon Primary Care Physician [phone] Encounter [facility] Date(s): 07/14/23 - 08/13/23 [facility] [address] [place] [address]- Allergies, Adverse Reactions, Alerts No Known Allergies Immunizations Given and Recorded Vaccine Date Status Refusal Reason tetanus/diphtheria/pertussis, acel(Tdap) 1 07/24/22 Given 1Result Comment: Tdap [facility]#[id number] Medications PEG-3350 with Electrolytes (Eqv-GoLYTELY) oral powder for reconstitution 240 mL, By Mouth, Every 15 minutes, Split prep method. 1/2 gallon evening prior to colonscopy and 1/2 gallon 6h prior to start of colonoscopy, # 4,000 mL, 0 Refills, Maintenance, 07/14/23 10:37:00 EDT, [facility] #[id number], Colonosopy Date: .. Start Date: 07/14/23 Status: [...] Team Personnel Name: Ally Biggs NP Position: S PCO Associate Professional Member Role: PCP Address: Address: [address] [place] [phone]- [place] Care Team Related Persons Name: RIANA MAGDALENO Address: home [address] [place] [address]
[2023-09-26 21:48] VITALS: BP 145/95; PULSE 105; RESP 17
[2023-09-26] MEDS: PHENobarbitaL sodium 130 MG/ML IM ONCE 317 MG IM (21:49)
--- NOTE | 2023-09-26 22:20 | PM.IMHP ---
History of Present Illness Date of Service: 09/26/23 Chief Complaint: seizure This is a 48-year-old male with no pertinent past medical history and not on prescription medications who was brought to the emergency department for evaluation of seizures. Patient was watching his son play soccer when he had an episode of tonic-clonic seizure. Patient rolled on for levels and hit his head. He was taken to an ER in [place], [place]. Patient stated that he drinks alcohol every day but as per the , patient consumes about 3-4 drinks every day and has not had a drink in the last couple of days due to the [place] trip. Patient had a 2nd episode of seizure in the ER which was witnessed by ER provider in [place]. Hospitalist at [facility] requested transfer due to lack of neurology backup. Patient requested transfer to [facility] as family lives in [place]. Patient complains of right thigh pain at the time of my evaluation. He does not remember what happened but remembers falling down and hitting his head. States he had 1 episode of seizure as a child but is not on any antiepileptics. Admits daily alcohol use but denies any previous alcohol withdrawal. No hallucinations, tremors or anxiety. In the emergency department, patient was initiated on phenobarb protocol. Patient was given 1500 mg IV Keppra and 4 mg IV Ativan at outside facility before being transferred to [facility]. Imaging done at outside facility: -CT right lower extremity-15 cm intramuscular hematoma within the vastus intermedius muscle at the anterior right thigh -CT abdomen/pelvis- No acute findings. Hepatic steatosis -CT head- No acute intracranial findings. Frontal scalp hematoma -CT cervical spine- No acute findings. No fracture Review of Systems Constitutional: Constitutional: Reports no additional constitutional complaints Cardiovascular: Cardiovascular: Reports no additional cardiovascular complaints Respiratory: Respiratory: Reports no additional respiratory complaints Gastrointestinal: Gastrointestinal: Reports no additional gastrointestinal complaints Genitourinary: Genitourinary: Reports no additional male genitourinary complaints Musculoskeletal: Musculoskeletal: Reports arthralgias and Reports joint swelling PMFSH Medical History Alcohol abuse Pertinent family history: No family history of early CAD Social History Alcohol intake: current Alcohol intake frequency: 3 or more drinks per day Alcohol type: wine and hard liquor Patient Tobacco Use Status: Former Tobacco user Smoked in Last 30 Days: No Use of substances other than those prescribed or required for medical reasons: No Advance Directives: No Advance Directives Information Provided: No Do you have a plan to hurt others: No Plan Current occupational status: employed Current occupation: maintenance/ right hand dominant Meds Allergies Allergy/AdvReac Type Severity Reaction Status Date / Time No Known Allergies Allergy Verified 09/26/23 21:29 Active Medications: Current Medications Pharmacy Consult (Consult Rx Etoh Phenob Im/Po) 1 each MISCELLANE ONCE PRN; Protocol PRN Reason: Consult order Phenobarbital (Phenobarbital 15 Mg Tablet) 45 mg PO BID [facility] Stop: 09/28/23 21:01 Phenobarbital (Phenobarbital 30 Mg Tablet) 30 mg PO BID [facility] Stop: 09/30/23 21:01 Phenobarbital (Phenobarbital 15 Mg Tablet) 15 mg PO DAILY [facility] Stop: 10/02/23 09:01 Phenobarbital Sodium (Phenobarbital Sodium 130 Mg/Ml Vial Im Q3hx2) 238 mg IM Q3H MELANIE Stop: 09/27/23 04:01 Home Medications ?Medication ?Instructions ?Recorded ?Confirmed ?Last Taken ?Type No Known Home Meds 11/10/22 11/10/22 Unknown History Physical Exam Vital Signs and Narrative: Vital Signs: Last Vital Signs Temp 99.3 F 09/26/23 21:27 Pulse 105 H 09/26/23 21:48 Resp 17 09/26/23 21:48 BP 145/95 H 09/26/23 21:48 Pulse Ox 98 09/26/23 21:27 O2 Del Method Room Air 09/26/23 21:27 BMI result Body Mass Index 31.1 Middle-aged male lying in bed in no distress Neck supple, no JVD Regular rate and rhythm, S1-S2 heard Regular breath sounds bilaterally, no wheezing or crackles appreciated Abdomen soft nontender, no guarding, no rigidity Patient is awake, alert and oriented to self, place, time and person ; no focal motor deficit Psych: Normal mood Right thigh with swelling which is firm, tenderness present Results Labs 09/26/23 22:36 Assessment and Plan (1) Generalized tonic-clonic seizure: Status: Acute (2) Hematoma of right thigh: Status: Acute Plan This is a 48-year-old male with no pertinent past medical history and not on prescription medications who was brought to the emergency department for evaluation of seizures. #. Seizure, generalized tonic-clonic: ?alcohol withdrawal seizure. Had 2 seizure episodes on the day of presentation. Patient given 1500 mg IV Keppra, evening of 09/25. Consulted Neurology and obtaining EEG #. Right thigh hematoma: CT scan done at outside facility with 15 cm intramuscular hematoma within the vastus intermedius. Consulted General surgery. Analgesics p.r.n. #. Alcohol use disorder: Concern for alcohol withdrawal seizure. Phenobarb protocol initiated in the ER. Initiating thiamine. Monitor CIWA. Consulted Addiction Team #. Elevated transaminases: Hepatic steatosis on abdominal imaging. Outpatient follow-up DVT prophylaxis: Mechanical Full code Admit as inpatient and will require two night minimum hospital stay for evaluation of generalized tonic-clonic seizure and hematoma (as above), which is not possible in a lesser acute setting. Specialist consult pending Quality Stroke Does the patient have a stroke diagnosis?: No VTE Prior VTE?: No VTE Risk Level:: Medical - moderate - high VTE Device Contraindication: Treatment Not Indicated VTE Drug Contraindication: N/A - Med Ordered
[2023-09-26] MEDS: Thiamine HCL 100 MG in 0.9 % Sodium Chloride 100 ML 202 MG IV (22:39)
[2023-09-26] MEDS: traMADoL HCL 50 MG TABLET PO (22:39)
[2023-09-26 23:04] LABS: Ethanol < 10 mg/dL
[2023-09-26 23:05] LABS: Alanine Aminotransferase 66 U/L (0-40); Alkaline Phosphatase 67 U/L (39-117); Anion Gap 15 (12-20); Aspartate Amino Transferase 77 U/L (5-37); Bilirubin Direct 0.6 mg/dL (0.0-0.5); Bilirubin Total 1.7 mg/dL (0.0-1.0); Blood Urea Nitrogen 7 mg/dL (9-16); Calcium 8.8 mg/dL (8.4-10.2); Carbon Dioxide 23 mmol/L (22-29); Chloride 107 mmol/L (96-108); Creatinine Clr Calc Pharmacy 112.3; Estimated Glomerular Filt Rate > 60; Glucose Random 148 mg/dL (60-115); Magnesium 2.1 mg/dL (1.6-2.6); Potassium 3.8 mmol/L (3.3-5.1); Sodium 141 mmol/L (135-145); Total Protein 6.8 g/dL (6.5-8.0)
--- NOTE | 2023-09-27 | EEG_ITS ---
This is a 16-channel EEG with an EKG lead. The patient is reported awake during the tracing. Background EEG rhythm is 16-20 hertz 5-20 microvolt posteriorly, lower amplitude fast anteriorly. Almost continuous EKG artifact is noted. Photic stimulation does not produce any significant abnormality. Hyperventilation is not performed. No obvious sharp wave spikes or paroxysmal tendency noted. IMPRESSION: No significant abnormality noted on this EEG. MD VLAD Zarate/LACEY / [id number]
[2023-09-27] MEDS: PHENobarbitaL sodium 130 MG/ML VIAL IM Q3Hx2 238 MG IM ×2 (00:50→04:37)
[2023-09-27] MEDS: 0.9 % Sodium Chloride Flush 3 ML SYRINGE IVFLUSH ×4 (01:12→20:30)
[2023-09-27 04:00] VITALS: BP 140/92; PULSE 97; RESP 18; TEMP 36.6; O2SAT 97
[2023-09-27 04:57] VITALS: BMI 31.1
[2023-09-27 07:27] LABS: MANUAL DIFF FLAG NO
[2023-09-27 07:33] LABS: Basophils Absolute Auto 0.1 X10*3/uL (0.0-0.2); Basophils Percent Auto 0.4 % (0-2); Eosinophils Percent Auto 0.3 % (0-4); Hematocrit 31.7 % (42.0-52.0); Hemoglobin 11.5 g/dl (14.0-18.0); Imm Gran Pct Auto 0.8 % (0.0-0.4); Lymphocytes Absolute Auto 1.1 X10*3/uL (1.2-4.9); Lymphocytes Percent Auto 8.7 % (20-40); Mean Corpuscular HGB Conc 36.3 g/dl (31.0-36.0); Mean Corpuscular Hemoglobin 34.1 pg (27.0-33.0); Mean Corpuscular Volume 94.1 fL (80.0-98.0); Mean Platelet Volume 10.8 fL (9.4-12.4); Monocytes Absolute Auto 1.1 X10*3/uL (0.1-1.2); Monocytes Percent Auto 8.7 % (2-11); Neutrophils Absolute Auto 10.6 x10*3/uL (2.0-8.3); Neutrophils Percent Auto 81.1 % (45-73); Platelet Count 160 X10*3/uL (160-400); Red Blood Count 3.37 X10*6/uL (4.60-5.80); Red Cell Distribution Width 11.7 % (11.0-16.0); White Blood Count 13.1 X10*3/uL (4.8-10.8)
[2023-09-27 07:43] VITALS: BP 134/82; PULSE 93; RESP 16; TEMP 37.7; O2SAT 95
--- NOTE | 2023-09-27 07:49 | P.CONGS_ITS ---
History of Present Illness Consult details Consult date: 09/27/23 Narrative: 48-year-old male, admitted because of tonic-clonic seizures. He apparently was walking up the stairs watching his son plays soccer yesterday when he had a seizure and started falling down the steps. He was brought to a hospital in [place] but he was transferred to [facility] as per patient's request He would suffered injuries on the face and the forehead. He also had ecchymosis on the area of the right shoulder right lateral chest. He had a CAT scan in [place] showing hematoma in the intramuscular area of the vastus on the right thigh. He describes some pain on this area although this was worse yesterday. He is known to have daily alcohol intake, about 3-4 drinks a day. He apparently had not been drinking for 2 days as he had been out of town for his son's soccer games. Currently, he says he has a lot of aches and pains. He is answering questions well. He was noted to have a seizure episode in the ER in [place] as well. Review of Systems 2 Constitutional: Constitutional: Denies chills and Denies fever(s) Cardiovascular: Cardiovascular: Denies chest pain Respiratory: Respiratory: Denies cough Gastrointestinal: Gastrointestinal: Denies abdominal pain Genitourinary: Genitourinary: Denies difficulty urinating Musculoskeletal: Musculoskeletal: Reports back pain and Reports myalgias PMFSH Past Medical History Medical History Alcohol abuse Social History Social History Household Members: Family Housing: House Do you presently have visiting nurse or other home services: No Alcohol intake: current Alcohol intake frequency: 3 or more drinks per day Alcohol type: wine and hard liquor Comment: Allowing alarms intermittently. Patient Tobacco Use Status: Former Tobacco user Tobacco use type: Cigarette service: No Current occupational status: employed Current occupation: maintenance/ right hand dominant Meds Allergies Allergy/AdvReac Type Severity Reaction Status Date / Time No Known Allergies Allergy Verified 09/26/23 21:29 Active Medications: Current Medications Acetaminophen (Acetaminophen 325 Mg Tablet) 650 mg PO Q6H PRN PRN Reason: Pain, Mild (Pain Scale 1-3) Thiamine HCl 100 mg/ Sodium (Chloride) 101 mls @ 202 mls/hr IV DAILY [facility] Last Infusion: 09/26/23 23:15 Dose: Infused Melatonin (Melatonin 3 Mg Tablet) 6 mg PO BEDTIME PRN PRN Reason: Insomnia Ondansetron HCl (Ondansetron Hcl 4 Mg/2 Ml Vial) 4 mg IVPUSH Q8H PRN PRN Reason: Nausea and Vomiting Pharmacy Consult (Consult Rx Etoh Phenob Im/Po) 1 each MISCELLANE ONCE PRN; Protocol PRN Reason: Consult order Phenobarbital (Phenobarbital 15 Mg Tablet) 45 mg PO BID [facility] Stop: 09/28/23 21:01 Phenobarbital (Phenobarbital 30 Mg Tablet) 30 mg PO BID [facility] Stop: 09/30/23 21:01 Phenobarbital (Phenobarbital 15 Mg Tablet) 15 mg PO DAILY [facility] Stop: 10/02/23 09:01 Sodium Chloride (0.9 % Sodium Chloride Flush 3 Ml Syringe) [facility] Last Admin: 09/27/23 01:12 Dose: 3 ml Tramadol HCl (Tramadol Hcl 50 Mg Tablet) 50 mg PO Q6H PRN PRN Reason: Pain, Severe (Pain Scale 7-10) Last Admin: 09/26/23 22:39 Dose: 50 mg Home Medications ?Medication ?Instructions ?Recorded ?Confirmed ?Last Taken ?Type No Known Home Meds 11/10/22 09/27/23 Unknown History Physical Exam 2 Vital Signs: Vital Signs: Last Vital Signs Temp 99.8 F 09/27/23 07:43 Pulse 93 09/27/23 07:43 Resp 16 09/27/23 07:43 BP 134/82 09/27/23 07:43 Pulse Ox 95 09/27/23 07:43 O2 Del Method Room Air 09/27/23 07:43 BMI result Body Mass Index 31.1 Const: General: alert and awake HEENT: Other: Some ecchymosis on the forehead area Resp: Effort & Inspection: normal respiratory effort Cardio: Rate: regular rate GI: Palpation (GI): Soft to palpation, not firm and nontender Extrem: Other: Ecchymosis on the right shoulder area Right thigh with edema , soft, warm, no evidence of any vascular compromise distally Results Labs 09/28/23 11:08 09/28/23 11:08 Labs: Abnormal lab results 09/26/23 09/27/23 Range/Units 22:36 07:23 WBC 13.1 H (4.8-10.8) X10*3/uL RBC 3.37 L (4.60-5.80) X10*6/uL Hgb 11.5 L (14.0-18.0) g/dl Hct 31.7 L (42.0-52.0) % MCH 34.1 H (27.0-33.0) pg MCHC 36.3 H (31.0-36.0) g/dl Immature Gran % (Auto) 0.8 H (0.0-0.4) % Neut % (Auto) 81.1 H (45-73) % Lymph % (Auto) 8.7 L (20-40) % Lymph # (Auto) 1.1 L (1.2-4.9) X10*3/uL Abs Immat Gran (auto) 0.10 H (0.00-0.03) X10*3/uL Absolute Neuts (auto) 10.6 H (2.0-8.3) x10*3/uL BUN 7 L (9-16) mg/dL Random Glucose 148 H (60-115) mg/dL Total Bilirubin 1.7 H (0.0-1.0) mg/dL Direct Bilirubin 0.6 H (0.0-0.5) mg/dL AST 77 H (5-37) U/L ALT 66 H (0-40) U/L Total Creatine Kinase 438 H (38-174) U/L Short CBC 09/27/23 Range/Units 07:23 WBC 13.1 H (4.8-10.8) X10*3/uL Hgb 11.5 L (14.0-18.0) g/dl Hct 31.7 L (42.0-52.0) % Plt Count 160 (160-400) X10*3/uL BMP 09/26/23 22:36 Sodium 141 Potassium 3.8 Chloride 107 Carbon Dioxide 23 BUN 7 L Creatinine 0.87 Calcium 8.8 Cardiac Enzymes 09/26/23 Range/Units 22:36 Total Creatine Kinase 438 H (38-174) U/L Liver Function 09/26/23 Range/Units 22:36 Total Bilirubin 1.7 H (0.0-1.0) mg/dL Direct Bilirubin 0.6 H (0.0-0.5) mg/dL AST 77 H (5-37) U/L ALT 66 H (0-40) U/L Alkaline Phosphatase 67 (39-117) U/L Albumin 4.0 (3.5-5.0) g/dL All other labs normal. Assessment and Plan (1) Hematoma of right thigh: Status: Acute He has an intramuscular thigh hematoma right side seen on a CT scan. Currently, this appears to be stable. There isno evidence of any vascular or neurologic compromise on the right leg. His hemoglobin seems to be stable . This will need to be monitored. We will also do serial examination of the right thigh He has had seizure episodes so he is being followed by the neurologist. I will follow along while he has in the hospital. Procedures Date of Service Date of Service: 09/30/23
[2023-09-27 07:53] LABS: Anion Gap 13 (12-20); Blood Urea Nitrogen 7 mg/dL (9-16); Calcium 8.8 mg/dL (8.4-10.2); Carbon Dioxide 24 mmol/L (22-29); Chloride 105 mmol/L (96-108); Creatinine Clr Calc Pharmacy 103.9; Estimated Glomerular Filt Rate > 60; Glucose Random 111 mg/dL (60-115); Potassium 3.5 mmol/L (3.3-5.1); Sodium 138 mmol/L (135-145)
--- NOTE | 2023-09-27 09:03 | PHA.MEDREC ---
Pharmacy Consult ? Medication Reconciliation Pharmacy has completed the medication reconciliation. Confirmed patient on no at home meds with at bedside.
[2023-09-27] MEDS: Thiamine HCL 100 MG in 0.9 % Sodium Chloride 100 ML 202 MG IV (09:13)
[2023-09-27] MEDS: PHENobarbitaL 15 MG TABLET 45 MG PO ×2 (09:13→20:28)
--- NOTE | 2023-09-27 09:41 | P.CNNE_ITS ---
History of Present Illness Data of Consult Service Date: 09/27/23 Primary Care Provider: Unknown Physician HPI Reason for consult: Seizure 48 years old man who probably has been consuming too much alcohol 4 years had a generalized convulsion and was taken to a hospital in [place] from where he was sent to this hospital because of lack of neurology coverage. Apparently in emergency room he had another seizure. He was not known to have seizures in the past. Also, usually he was drinking few alcoholic beverages a day and on the day of seizure he did not drink. He did not remember what had happened. Review of Systems 2 Review of Systems: No recent cold or flu-like illness or headache or head injury PMFSH Past Medical History Medical History Alcohol abuse Social History Social History Household Members: Family Housing: House Do you presently have visiting nurse or other home services: No Alcohol intake: current Alcohol intake frequency: 3 or more drinks per day Alcohol type: wine and hard liquor Patient Tobacco Use Status: Former Tobacco user Tobacco use type: Cigarette Current occupational status: employed Current occupation: maintenance/ right hand dominant Meds Allergies Allergy/AdvReac Type Severity Reaction Status Date / Time No Known Allergies Allergy Verified 09/26/23 21:29 Active Medications: Current Medications Acetaminophen (Acetaminophen 325 Mg Tablet) 650 mg PO Q6H PRN PRN Reason: Pain, Mild (Pain Scale 1-3) Thiamine HCl 100 mg/ Sodium (Chloride) 101 mls @ 202 mls/hr IV DAILY [facility] Last Admin: 09/27/23 09:13 Dose: 202 mls/hr Melatonin (Melatonin 3 Mg Tablet) 6 mg PO BEDTIME PRN PRN Reason: Insomnia Ondansetron HCl (Ondansetron Hcl 4 Mg/2 Ml Vial) 4 mg IVPUSH Q8H PRN PRN Reason: Nausea and Vomiting Pharmacy Consult (Consult Rx Etoh Phenob Im/Po) 1 each MISCELLANE ONCE PRN; Protocol PRN Reason: Consult order Phenobarbital (Phenobarbital 15 Mg Tablet) 45 mg PO BID [facility] Stop: 09/28/23 21:01 Last Admin: 09/27/23 09:13 Dose: 45 mg Phenobarbital (Phenobarbital 30 Mg Tablet) 30 mg PO BID [facility] Stop: 09/30/23 21:01 Phenobarbital (Phenobarbital 15 Mg Tablet) 15 mg PO DAILY [facility] Stop: 10/02/23 09:01 Sodium Chloride (0.9 % Sodium Chloride Flush 3 Ml Syringe) 3 ml IVFLUSH QSHIFT [facility] Last Admin: 09/27/23 09:28 Dose: 3 ml Tramadol HCl (Tramadol Hcl 50 Mg Tablet) 50 mg PO Q6H PRN PRN Reason: Pain, Severe (Pain Scale 7-10) Last Admin: 09/26/23 22:39 Dose: 50 mg Home Medications ?Medication ?Instructions ?Recorded ?Confirmed ?Last Taken ?Type No Known Home Meds 11/10/22 09/27/23 Unknown History Physical Exam 2 Vital Signs: Vital Signs: Last Vital Signs Temp 99.8 F 09/27/23 07:43 Pulse 93 09/27/23 07:43 Resp 16 09/27/23 07:43 BP 134/82 09/27/23 07:43 Pulse Ox 95 09/27/23 07:43 O2 Del Method Room Air 09/27/23 07:43 BMI result Body Mass Index 31.1 Neuro: Other: He is alert and awake with normal spontaneity of speech fluency comprehension and vague affect. He had multiple bruises on his face and torso. Face is symmetrical. Visual bonilla are normal. [id number] testing revealed bilateral ataxia. Plantars are flexor. There is no focal weakness Results Labs 09/27/23 07:23 09/27/23 06:42 Labs: Short CBC 09/27/23 Range/Units 07:23 WBC 13.1 H (4.8-10.8) X10*3/uL Hgb 11.5 L (14.0-18.0) g/dl Hct 31.7 L (42.0-52.0) % Plt Count 160 (160-400) X10*3/uL BMP 09/26/23 09/27/23 22:36 06:42 Sodium 141 138 Potassium 3.8 3.5 Chloride 107 105 Carbon Dioxide 23 24 BUN 7 L 7 L Creatinine 0.87 0.94 Calcium 8.8 8.8 Cardiac Enzymes 09/26/23 Range/Units 22:36 Total Creatine Kinase 438 H (38-174) U/L Liver Function 09/26/23 Range/Units 22:36 Total Bilirubin 1.7 H (0.0-1.0) mg/dL Direct Bilirubin 0.6 H (0.0-0.5) mg/dL AST 77 H (5-37) U/L ALT 66 H (0-40) U/L Alkaline Phosphatase 67 (39-117) U/L Albumin 4.0 (3.5-5.0) g/dL Assessment and Plan (1) Generalized tonic-clonic seizure: Status: Acute 48 years old man who probably has chronic alcoholism had couple of generalized convulsions. Though alcohol withdrawal is 1 of the etiologies, his risk of seizure disorder is likely much higher than average. I recommend starting him on levetiracetam 750 mg twice a day and obtaining an MRI of brain with and without contrast. Alcohol related precautions should also be taken including administration of thiamine folate and B complex vitamins. He was advised not to drive and [facility] law about driving was discussed. He should also avoid activities that could put his life in danger such as swimming alone. Procedures Date of Service Date of Service: 09/27/23
--- NOTE | 2023-09-27 12:15 | PC.NURSE ---
Seizure precautions in place for patient. Patient and family educated on use of in room camera for safety. Patient refused camera placement in room. Patient refusing bed alarm. Safety education provided to patient and family. Verbalized understanding.
--- NOTE | 2023-09-27 13:37 | HO.PM.IMPN ---
Subjective Subjective Date of Service: 09/27/23 Review of Systems Follow-up alcohol withdrawal seizure No seizure so far during hospitalization Physical Exam Vital Signs: Vital Signs: Last Vital Signs Temp 99.8 F 09/27/23 07:43 Pulse 93 09/27/23 07:43 Resp 16 09/27/23 07:43 BP 134/82 09/27/23 07:43 Pulse Ox 95 09/27/23 07:43 O2 Del Method Room Air 09/27/23 07:43 BMI result Body Mass Index 31.1 Objective Data Active Medications Acetaminophen (Acetaminophen 325 Mg Tablet) 650 mg PO Q6H PRN PRN Reason: Pain, Mild (Pain Scale 1-3) Thiamine HCl 100 mg/ Sodium (Chloride) 101 mls @ 202 mls/hr IV DAILY [facility] Last Infusion: 09/27/23 10:38 Dose: Infused Documented By: RC Melatonin (Melatonin 3 Mg Tablet) 6 mg PO BEDTIME PRN PRN Reason: Insomnia Ondansetron HCl (Ondansetron Hcl 4 Mg/2 Ml Vial) 4 mg IVPUSH Q8H PRN PRN Reason: Nausea and Vomiting Pharmacy Consult (Consult Rx Etoh Phenob Im/Po) 1 each MISCELLANE ONCE PRN; Protocol PRN Reason: Consult order Phenobarbital (Phenobarbital 15 Mg Tablet) 45 mg PO BID [facility] Stop: 09/28/23 21:01 Last Admin: 09/27/23 09:13 Dose: 45 mg Documented By: RC Phenobarbital (Phenobarbital 30 Mg Tablet) 30 mg PO BID [facility] Stop: 09/30/23 21:01 Phenobarbital (Phenobarbital 15 Mg Tablet) 15 mg PO DAILY [facility] Stop: 10/02/23 09:01 Sodium Chloride (0.9 % Sodium Chloride Flush 3 Ml Syringe) 3 ml IVFLUSH QSHIFT [facility] Last Admin: 09/27/23 09:28 Dose: 3 ml Documented By: RC Tramadol HCl (Tramadol Hcl 50 Mg Tablet) 50 mg PO Q6H PRN PRN Reason: Pain, Severe (Pain Scale 7-10) Last Admin: 09/26/23 22:39 Dose: 50 mg Documented By: PAM Labs 09/27/23 07:23 09/27/23 06:42 Labs: Laboratory Results - last 24 hr 0609/27/23 09/27/23 22:36 06:42 07:23 MCV 94.1 MCH 34.1 H MCHC 36.3 H RDW 11.7 Plt Count 160 MPV 10.8 Immature Gran % (Auto) 0.8 H Neut % (Auto) 81.1 H Lymph % (Auto) 8.7 L [place] % (Auto) 8.7 Eos % (Auto) 0.3 Baso % (Auto) 0.4 Lymph # (Auto) 1.1 L [place] # (Auto) 1.1 Eos # (Auto) 0.0 Baso # (Auto) 0.1 Abs Immat Gran (auto) 0.10 H Absolute Neuts (auto) 10.6 H Absolute Nucleated RBC 0.000 Nucleated RBC % (auto) 0.0 Anion Gap 15 13 Estim Creat Clear Calc 112.3 103.9 Estimated GFR > 60 > 60 Random Glucose 148 H 111 Calcium 8.8 8.8 Magnesium 2.1 Total Bilirubin 1.7 H Direct Bilirubin 0.6 H AST 77 H ALT 66 H Alkaline Phosphatase 67 Total Creatine Kinase 438 H Total Protein 6.8 Albumin 4.0 Ethyl Alcohol < 10 Assessment and Plan (1) Generalized tonic-clonic seizure: Status: Acute Plan his is a 48-year-old male with no pertinent past medical history and not on prescription medications who was brought to the emergency department for evaluation of seizures. Seizure, generalized tonic-clonic ?alcohol withdrawal seizure. Had 2 seizure episodes on the day of presentation. Patient given 1500 mg IV Keppra, evening of 09/25. Consulted Neurology>start Keppra 750mg BID and MRI w/wo obtaining EEG Right thigh hematoma CT scan done at outside facility with 15 cm intramuscular hematoma within the vastus intermedius. Consulted General surgery> no surgical intervention required Analgesics p.r.n. Alcohol use disorder Concern for alcohol withdrawal seizure. Phenobarb protocol initiated . IV thiamine, folate, MVI Consulted Addiction Team Elevated transaminases Hepatic steatosis on abdominal imaging. Outpatient follow-up DVT prophylaxis: Mechanical Attending Dr. Pete Full code continue hospital stay for evaluation of generalized tonic-clonic seizure and hematoma (as above), which is not possible in a lesser acute setting. Specialist consult pending Quality Stroke Does the patient have a stroke diagnosis?: No VTE Prior VTE?: No VTE Risk Level:: Medical - moderate - high VTE Device Contraindication: Treatment Not Indicated VTE Drug Contraindication: N/A - Med Ordered
[2023-09-27] MEDS: traMADoL HCL 50 MG TABLET PO ×2 (15:37→22:39)
[2023-09-27 16:00] VITALS: BP 137/85; PULSE 94; RESP 16; TEMP 36.9; O2SAT 96
[2023-09-27 19:28] VITALS: BP 140/70; PULSE 84; RESP 18; TEMP 36.9; O2SAT 95
[2023-09-27] MEDS: Multivitamin TABLET 1 TAB PO (20:28)
[2023-09-27] MEDS: oxyCODONE HCl Immed Release 5 MG TABLET PO (23:33)
--- NOTE | 2023-09-27 23:35 | PC.NURSE ---
pt medicated at 2238 with tramadol 50mg po for c/o right thigh pain with no relief. notified and ordered oxycodone 5mg po Q4hrs prn.pt medicated at 2332 for 1010 pain.
[2023-09-28 03:24] VITALS: BP 154/90; PULSE 87; RESP 16; TEMP 36.4; O2SAT 95
[2023-09-28 03:48] LABS: HIV AB/AG Nonreactive (Nonreactive); HIV Num 1 0.05 S/CO (0.00-0.99); ~Hepatitis C Antibody Nonreactive (Nonreactive)
[2023-09-28 07:18] VITALS: BP 128/82; PULSE 85; RESP 16; TEMP 37.1; O2SAT 93
[2023-09-28] MEDS: PHENobarbitaL 15 MG TABLET 45 MG PO ×2 (08:33→20:32)
[2023-09-28] MEDS: levETIRAcetam 250 MG TABLET 750 MG PO ×2 (08:33→20:32)
[2023-09-28] MEDS: Folic Acid 1 MG TABLET PO (08:33)
[2023-09-28] MEDS: oxyCODONE HCl Immed Release 5 MG TABLET PO ×3 (08:34→20:32)
[2023-09-28] MEDS: 0.9 % Sodium Chloride Flush 3 ML SYRINGE IVFLUSH ×2 (08:35→20:35)
[2023-09-28] MEDS: Morphine Sulfate 2 MG/ML CARTRIDGE 1 MG IVPUSH (09:56)
[2023-09-28] MEDS: Thiamine HCL 100 MG in 0.9 % Sodium Chloride 100 ML 202 MG IV (09:57)
--- NOTE | 2023-09-28 10:16 | HO.PM.IMPN ---
Subjective Subjective Date of Service: 09/28/23 Review of Systems Follow-up alcohol withdrawal seizure No seizure so far during hospitalization Physical Exam Vital Signs: Vital Signs: Last Vital Signs Temp 98.7 F 09/28/23 07:18 Pulse 85 09/28/23 07:18 Resp 16 09/28/23 07:18 BP 128/82 09/28/23 07:18 Pulse Ox 93 09/28/23 07:18 O2 Del Method Room Air 09/28/23 07:18 BMI result Body Mass Index 31.1 Appearing in no acute distress lung sounds are clear to auscultation heart regular rate rhythm, clear S1, S2 positive bowel sounds, abdomen is soft, nontender neuro patient is alert x3, no focal deficits Brusing to forehead Objective Data Active Medications Acetaminophen (Acetaminophen 325 Mg Tablet) 650 mg PO Q6H PRN PRN Reason: Pain, Mild (Pain Scale 1-3) Folic Acid (Folic Acid 1 Mg Tablet) 1 mg PO DAILY [facility] Last Admin: 09/28/23 08:33 Dose: 1 mg Documented By: RC Thiamine HCl 100 mg/ Sodium (Chloride) 101 mls @ 202 mls/hr IV DAILY [facility] Last Admin: 09/28/23 09:57 Dose: 202 mls/hr Documented By: VIPUL Levetiracetam (Levetiracetam 250 Mg Tablet) 750 mg PO BID [facility] Last Admin: 09/28/23 08:33 Dose: 750 mg Documented By: RC Melatonin (Melatonin 3 Mg Tablet) 6 mg PO BEDTIME PRN PRN Reason: Insomnia Morphine Sulfate (Morphine Sulfate 2 Mg/Ml Cartridge) 1 mg IVPUSH Q4H PRN; Protocol PRN Reason: Pain, Moderate(Pain Scale 4-6) Last Admin: 09/28/23 09:56 Dose: 1 mg Documented By: VIPUL Multivitamins/Vitamin C (Multivitamin Tablet) 1 tab PO BEDTIME [facility] Last Admin: 09/27/23 20:28 Dose: 1 tab Documented By: JVRISMorris Ondansetron HCl (Ondansetron Hcl 4 Mg/2 Ml Vial) 4 mg IVPUSH Q8H PRN PRN Reason: Nausea and Vomiting Oxycodone HCl (Oxycodone Hcl Immed Release 5 Mg Tablet) 5 mg PO Q4H PRN PRN Reason: Pain, Severe (Pain Scale 7-10) Last Admin: 09/28/23 08:34 Dose: 5 mg Documented By: RC Pharmacy Consult (Consult Rx Etoh Phenob Im/Po) 1 each MISCELLANE ONCE PRN; Protocol PRN Reason: Consult order Phenobarbital (Phenobarbital 15 Mg Tablet) 45 mg PO BID [facility] Stop: 09/28/23 21:01 Last Admin: 09/28/23 08:33 Dose: 45 mg Documented By: RC Phenobarbital (Phenobarbital 30 Mg Tablet) 30 mg PO BID [facility] Stop: 09/30/23 21:01 Phenobarbital (Phenobarbital 15 Mg Tablet) 15 mg PO DAILY [facility] Stop: 10/02/23 09:01 Sodium Chloride (0.9 % Sodium Chloride Flush 3 Ml Syringe) [facility] Last Admin: 09/28/23 08:35 Dose: 3 ml Documented By: RC Tramadol HCl (Tramadol Hcl 50 Mg Tablet) 50 mg PO Q6H PRN PRN Reason: Pain, Severe (Pain Scale 7-10) Last Admin: 09/27/23 22:39 Dose: 50 mg Documented By: JVRISMorris Labs 09/27/23 07:23 09/27/23 06:42 Labs: Laboratory Results - last 24 hr 09/27/23 14:33 Hepatitis C Ab (EIA) Nonreactive HIV 1&2 Ab/P24 Ag 4thGn Nonreactive Assessment and Plan (1) Generalized tonic-clonic seizure: Status: Acute Plan 48-year-old male with no pertinent past medical history and not on prescription medications who was brought to the emergency department for evaluation of seizures. Seizure, generalized tonic-clonic ?alcohol withdrawal seizure. Had 2 seizure episodes on the day of presentation. Patient given 1500 mg IV Keppra, evening of 09/25. Consulted Neurology>start Keppra 750mg BID and MRI w/wo obtaining EEG Right thigh hematoma CT scan done at outside facility with 15 cm intramuscular hematoma within the vastus intermedius. Consulted General surgery> no surgical intervention required increased pain pain to thigh and knee, get hip and knee xray Analgesics p.r.n. Alcohol use disorder Concern for alcohol withdrawal seizure. continue Phenobarb protocol IV thiamine, folate, MVI Consulted Addiction Team Elevated transaminases Hepatic steatosis on abdominal imaging. Outpatient follow-up DVT prophylaxis: Mechanical Attending Dr. Pete Full code continue hospital stay for evaluation of generalized tonic-clonic seizure and hematoma (as above), which is not possible in a lesser acute setting. Specialist consult pending Quality Stroke Does the patient have a stroke diagnosis?: No VTE Prior VTE?: No VTE Risk Level:: Medical - moderate - high VTE Device Contraindication: Treatment Not Indicated VTE Drug Contraindication: N/A - Med Ordered
[2023-09-28 11:15] LABS: Hematocrit 28.7 % (42.0-52.0); Hemoglobin 10.6 g/dl (14.0-18.0); Mean Corpuscular HGB Conc 36.9 g/dl (31.0-36.0); Mean Corpuscular Hemoglobin 34.8 pg (27.0-33.0); Mean Corpuscular Volume 94.1 fL (80.0-98.0); Mean Platelet Volume 10.1 fL (9.4-12.4); Platelet Count 157 X10*3/uL (160-400); Red Blood Count 3.05 X10*6/uL (4.60-5.80); Red Cell Distribution Width 11.4 % (11.0-16.0); White Blood Count 14.1 X10*3/uL (4.8-10.8)
[2023-09-28 11:38] LABS: Anion Gap 13 (12-20); Blood Urea Nitrogen 11 mg/dL (9-16); Calcium 8.7 mg/dL (8.4-10.2); Carbon Dioxide 24 mmol/L (22-29); Chloride 101 mmol/L (96-108); Creatinine Clr Calc Pharmacy 99.7; Estimated Glomerular Filt Rate > 60; Glucose Random 128 mg/dL (60-115); Potassium 3.9 mmol/L (3.3-5.1); Sodium 134 mmol/L (135-145)
--- NOTE | 2023-09-28 12:54 | MHC.CM.PN ---
DX SZ S/P FALL Patient lives with family. He is independent with all functional mobility. A HCP has been documented. Copies provided to Pt. HCP has been scanned into EMR. PT eval rec: Home with services vs STR. DP Home PT vs STR family support+transport vs BLS.
--- NOTE | 2023-09-28 13:11 | MHC.RECOVRN ---
Met with pt in 351 after consult placed to Addiction Medicine for alcohol use. Per triage note, Pt BIBA as xfer from [facility] for new onset seizures. Pt was at sporting event today, collapsed with (+) head strike, (-) blood thinners, (+) postictal state. taken to hospital where pt had additional seizure in front of staff. Pt reports daily ETOH use. Upon evaluation, pt admitted for generalized tonic clonic seizure, ?alcohol withdrawal seizure. Pt laying in bed, awake, alert, engages in conversation, appears comfortable. Pt reports alcohol use primarily on the weekends, 5-6 shots whiskey. Does report during the week he will have either 1-3 shots whiskey or 1-3 glasses wine daily. Pt reports last use day before admission. Pt reports alcohol use has increased over the past 6 months due to stress, does not elaborate. Pt reports he does not have concerns regarding his alcohol use but would like to cut down. Pt denies hx tx for AUD. Reports positive family hx AUD. Pt reports he works and spends time with his family. Reports alcohol use has never caused any legal issues or interfered with work. Discussed recovery resources and supports, pt is not interested in referrals at this time. Provided pt with written information as well as t/w contact information if needed. Denies questions or concerns for t/w. Discussed with Pily Penaloza APRN.
--- NOTE | 2023-09-28 15:04 | P.PNGS_ITS ---
Subjective Subjective Date of Service: 09/28/23 Interval history: States he is ?okay? Admits to pain on the right thigh No further seizures Physical Exam 2 Vital Signs: Vital Signs: Last Vital Signs Temp 98.7 F 09/28/23 07:18 Pulse 85 09/28/23 07:18 Resp 16 09/28/23 07:18 BP 128/82 09/28/23 07:18 Pulse Ox 93 09/28/23 07:18 O2 Del Method Room Air 09/28/23 07:18 BMI result Body Mass Index 31.1 Const: Other: Looks comfortable General: comfortable, no acute distress, alert and awake Resp: Effort & Inspection: normal respiratory effort Cardio: Rate: regular rate GI: Palpation (GI): Soft to palpation and not firm Extrem: Other: Right thigh swelling dissector to his hematoma, no skin changes, no evidence of vascular compromise steady Objective Data Active Medications Acetaminophen (Acetaminophen 325 Mg Tablet) 650 mg PO Q6H PRN PRN Reason: Pain, Mild (Pain Scale 1-3) Folic Acid (Folic Acid 1 Mg Tablet) 1 mg PO DAILY [facility] Last Admin: 09/28/23 08:33 Dose: 1 mg Documented By: RC Thiamine HCl 100 mg/ Sodium (Chloride) 101 mls @ 202 mls/hr IV DAILY [facility] Last Infusion: 09/28/23 11:01 Dose: Infused Documented By: RC Levetiracetam (Levetiracetam 250 Mg Tablet) 750 mg PO BID [facility] Last Admin: 09/28/23 08:33 Dose: 750 mg Documented By: RC Melatonin (Melatonin 3 Mg Tablet) 6 mg PO BEDTIME PRN PRN Reason: Insomnia Morphine Sulfate (Morphine Sulfate 2 Mg/Ml Cartridge) 1 mg IVPUSH Q4H PRN; Protocol PRN Reason: Pain, Moderate(Pain Scale 4-6) Last Admin: 09/28/23 09:56 Dose: 1 mg Documented By: VIPUL Multivitamins/Vitamin C (Multivitamin Tablet) 1 tab PO BEDTIME [facility] Last Admin: 09/27/23 20:28 Dose: 1 tab Documented By: ROSENDO Ondansetron HCl (Ondansetron Hcl 4 Mg/2 Ml Vial) 4 mg IVPUSH Q8H PRN PRN Reason: Nausea and Vomiting Oxycodone HCl (Oxycodone Hcl Immed Release 5 Mg Tablet) 5 mg PO Q4H PRN PRN Reason: Pain, Severe (Pain Scale 7-10) Last Admin: 09/28/23 13:27 Dose: 5 mg Documented By: RC Pharmacy Consult (Consult Rx Etoh Phenob Im/Po) 1 each MISCELLANE ONCE PRN; Protocol PRN Reason: Consult order Phenobarbital (Phenobarbital 15 Mg Tablet) 45 mg PO BID [facility] Stop: 09/28/23 21:01 Last Admin: 09/28/23 08:33 Dose: 45 mg Documented By: RC Phenobarbital (Phenobarbital 30 Mg Tablet) 30 mg PO BID [facility] Stop: 09/30/23 21:01 Phenobarbital (Phenobarbital 15 Mg Tablet) 15 mg PO DAILY [facility] Stop: 10/02/23 09:01 Sodium Chloride (0.9 % Sodium Chloride Flush 3 Ml Syringe) [facility] Last Admin: 09/28/23 08:35 Dose: 3 ml Documented By: RC Tramadol HCl (Tramadol Hcl 50 Mg Tablet) 50 mg PO Q6H PRN PRN Reason: Pain, Severe (Pain Scale 7-10) Last Admin: 09/27/23 22:39 Dose: 50 mg Documented By: JVRISMorris Labs 09/28/23 11:08 09/28/23 11:08 Labs: Laboratory Results - last 24 hr 09/27/23 09/28/23 14:33 11:08 MCV 94.1 MCH 34.8 H MCHC 36.9 H RDW 11.4 Plt Count 157 L MPV 10.1 Absolute Nucleated RBC 0.000 Nucleated RBC % (auto) 0.0 Anion Gap 13 Estim Creat Clear Calc 99.7 Estimated GFR > 60 Random Glucose 128 H Calcium 8.7 Hepatitis C Ab (EIA) Nonreactive HIV 1&2 Ab/P24 Ag 4thGn Nonreactive Procedures Date of Service Date of Service: 09/28/23 Progress Note: A&P Assessment and plan (1) Hematoma of right thigh: Status: Acute Assessment and Plan: Looks comfortable Very slight drift in hemoglobin No evidence of vascular compromise distally Recommend opinion from Orthopedic Service as well with regards to intramuscular hematoma To undergo MRI of the brain in view of seizure episodes Time Spent With Patient Time: Total time managing care of this patient today ____ minutes. Quality Stroke Does the patient have a stroke diagnosis?: No VTE Prior VTE?: No VTE Risk Level:: Medical - moderate - high VTE Device Contraindication: Treatment Not Indicated VTE Drug Contraindication: N/A - Med Ordered
[2023-09-28 16:00] VITALS: BP 124/73; PULSE 86; RESP 18; TEMP 36.7; O2SAT 96
[2023-09-28] MEDS: gadobutroL 10 ML VIAL IVPUSH (16:10)
[2023-09-28 20:00] VITALS: BP 139/86; PULSE 96; RESP 16; TEMP 37.2; O2SAT 95
[2023-09-28] MEDS: Multivitamin TABLET 1 TAB PO (20:32)
[2023-09-28] MEDS: Melatonin 3 MG TABLET 6 MG PO (20:32)
[2023-09-29] MEDS: Morphine Sulfate 2 MG/ML CARTRIDGE 1 MG IVPUSH (00:26)
[2023-09-29 04:00] VITALS: BP 128/83; PULSE 90; RESP 18; TEMP 37.4; O2SAT 95
[2023-09-29 07:47] VITALS: BP 130/82; PULSE 85; RESP 17; TEMP 36.8; O2SAT 95
[2023-09-29] MEDS: Thiamine HCL 100 MG in 0.9 % Sodium Chloride 100 ML 202 MG IV (08:40)
[2023-09-29] MEDS: PHENobarbitaL 30 MG TABLET PO ×2 (08:41→21:03)
[2023-09-29] MEDS: levETIRAcetam 250 MG TABLET 750 MG PO ×2 (08:41→21:03)
[2023-09-29] MEDS: Folic Acid 1 MG TABLET PO (08:41)
[2023-09-29] MEDS: 0.9 % Sodium Chloride Flush 3 ML SYRINGE IVFLUSH ×2 (08:41→21:06)
--- NOTE | 2023-09-29 08:56 | P.PNGS_ITS ---
Subjective Subjective Date of Service: 09/30/23 Interval history: No seizure episodes reported overnight He feels better this morning - still has pain on the right thigh but says this seems to be a little better He describes having severe pain on the right shoulder and with limitation of motion Physical Exam 2 Vital Signs: Vital Signs: Last Vital Signs Temp 98.3 F 09/29/23 07:47 Pulse 85 09/29/23 07:47 Resp 17 09/29/23 07:47 BP 130/82 09/29/23 07:47 Pulse Ox 95 09/29/23 07:47 O2 Del Method Room Air 09/29/23 07:47 BMI result Body Mass Index 31.1 Const: General: comfortable and no acute distress Resp: Effort & Inspection: normal respiratory effort Cardio: Rate: regular rate GI: Palpation (GI): Soft to palpation Extrem: Other: Right thigh edema and fullness, no suggestion of any vascular compromise distally Significant ecchymotic areas in the right shoulder with limitation range of motion Objective Data Active Medications Acetaminophen (Acetaminophen 325 Mg Tablet) 650 mg PO Q6H PRN PRN Reason: Pain, Mild (Pain Scale 1-3) Folic Acid (Folic Acid 1 Mg Tablet) 1 mg PO DAILY [facility] Last Admin: 09/29/23 08:41 Dose: 1 mg Documented By: MELE Thiamine HCl 100 mg/ Sodium (Chloride) 101 mls @ 202 mls/hr IV DAILY [facility] Last Admin: 09/29/23 08:40 Dose: 202 mls/hr Documented By: MELE Levetiracetam (Levetiracetam 250 Mg Tablet) 750 mg PO BID [facility] Last Admin: 09/29/23 08:41 Dose: 750 mg Documented By: MELE Melatonin (Melatonin 3 Mg Tablet) 6 mg PO BEDTIME PRN PRN Reason: Insomnia Last Admin: 09/28/23 20:32 Dose: 6 mg Documented By: WILMA Morphine Sulfate (Morphine Sulfate 2 Mg/Ml Cartridge) 1 mg IVPUSH Q4H PRN; Protocol PRN Reason: Pain, Moderate(Pain Scale 4-6) Last Admin: 09/29/23 00:26 Dose: 1 mg Documented By: WILMA Comments: unable to scan aaron RN threw away with waste on accident. Witnessed by MANJU Jeter Multivitamins/Vitamin C (Multivitamin Tablet) 1 tab PO BEDTIME [facility] Last Admin: 09/28/23 20:32 Dose: 1 tab Documented By: WILMA Ondansetron HCl (Ondansetron Hcl 4 Mg/2 Ml Vial) 4 mg IVPUSH Q8H PRN PRN Reason: Nausea and Vomiting Oxycodone HCl (Oxycodone Hcl Immed Release 5 Mg Tablet) 5 mg PO Q4H PRN PRN Reason: Pain, Severe (Pain Scale 7-10) Last Admin: 09/28/23 20:32 Dose: 5 mg Documented By: WILMA Pharmacy Consult (Consult Rx Etoh Phenob Im/Po) 1 each MISCELLANE ONCE PRN; Protocol PRN Reason: Consult order Phenobarbital (Phenobarbital 30 Mg Tablet) 30 mg PO BID [facility] Stop: 09/30/23 21:01 Last Admin: 09/29/23 08:41 Dose: 30 mg Documented By: MELE Phenobarbital (Phenobarbital 15 Mg Tablet) 15 mg PO DAILY [facility] Stop: 10/02/23 09:01 Sodium Chloride (0.9 % Sodium Chloride Flush 3 Ml Syringe) [facility] Last Admin: 09/29/23 08:41 Dose: 3 ml Documented By: MELE Tramadol HCl (Tramadol Hcl 50 Mg Tablet) 50 mg PO Q6H PRN PRN Reason: Pain, Severe (Pain Scale 7-10) Last Admin: 09/27/23 22:39 Dose: 50 mg Documented By: ROSENDO Labs 09/28/23 11:08 09/28/23 11:08 Labs: Laboratory Results - last 24 hr 09/28/23 11:08 MCV 94.1 MCH 34.8 H MCHC 36.9 H RDW 11.4 Plt Count 157 L MPV 10.1 Absolute Nucleated RBC 0.000 Nucleated RBC % (auto) 0.0 Anion Gap 13 Estim Creat Clear Calc 99.7 Estimated GFR > 60 Random Glucose 128 H Calcium 8.7 Procedures Date of Service Date of Service: 09/30/23 Progress Note: A&P Assessment and plan (1) Hematoma of right thigh: Status: Acute Assessment and Plan: No obvious active bleed Subjectively feels better although with significant limitation of motion the knee due to swelling of the thigh Looks well overall No further seizure episodes MRI done last night for the head was unremarkable He describes severe limitation of range of motion of the right shoulder as well along with the ecchymosis May be best to see opinion of orthopedic service with a encouraged to the right shoulder in the right thigh hematoma Time Spent With Patient Time: Total time managing care of this patient today ____ minutes. Quality Stroke Does the patient have a stroke diagnosis?: No VTE Prior VTE?: No VTE Risk Level:: Medical - moderate - high VTE Device Contraindication: Treatment Not Indicated VTE Drug Contraindication: N/A - Med Ordered
--- NOTE | 2023-09-29 09:02 | HO.PM.IMPN ---
Subjective Subjective Date of Service: 09/29/23 Review of Systems Follow-up alcohol withdrawal seizure No seizure so far during hospitalization Right shoulder pain continues with right leg pain due to hematoma Physical Exam Vital Signs: Vital Signs: Last Vital Signs Temp 98.3 F 09/29/23 07:47 Pulse 85 09/29/23 07:47 Resp 17 09/29/23 07:47 BP 130/82 09/29/23 07:47 Pulse Ox 95 09/29/23 07:47 O2 Del Method Room Air 09/29/23 07:47 BMI result Body Mass Index 31.1 Appearing in no acute distress Facial bruising lung sounds are clear to auscultation heart regular rate rhythm, clear S1, S2 positive bowel sounds, abdomen is soft, nontender neuro patient is alert x3, no focal deficits Objective Data Active Medications Acetaminophen (Acetaminophen 325 Mg Tablet) 650 mg PO Q6H PRN PRN Reason: Pain, Mild (Pain Scale 1-3) Folic Acid (Folic Acid 1 Mg Tablet) 1 mg PO DAILY [facility] Last Admin: 09/29/23 08:41 Dose: 1 mg Documented By: MELE Thiamine HCl 100 mg/ Sodium (Chloride) 101 mls @ 202 mls/hr IV DAILY [facility] Last Admin: 09/29/23 08:40 Dose: 202 mls/hr Documented By: MELE Levetiracetam (Levetiracetam 250 Mg Tablet) 750 mg PO BID [facility] Last Admin: 09/29/23 08:41 Dose: 750 mg Documented By: MELE Melatonin (Melatonin 3 Mg Tablet) 6 mg PO BEDTIME PRN PRN Reason: Insomnia Last Admin: 09/28/23 20:32 Dose: 6 mg Documented By: WILMA Morphine Sulfate (Morphine Sulfate 2 Mg/Ml Cartridge) 1 mg IVPUSH Q4H PRN; Protocol PRN Reason: Pain, Moderate(Pain Scale 4-6) Last Admin: 09/29/23 00:26 Dose: 1 mg Documented By: WILMA Comments: unable to scan aaron, RN threw away with waste on accident. Witnessed by MANJU Jeter Multivitamins/Vitamin C (Multivitamin Tablet) 1 tab PO BEDTIME [facility] Last Admin: 09/28/23 20:32 Dose: 1 tab Documented By: WILMA Ondansetron HCl (Ondansetron Hcl 4 Mg/2 Ml Vial) 4 mg IVPUSH Q8H PRN PRN Reason: Nausea and Vomiting Oxycodone HCl (Oxycodone Hcl Immed Release 5 Mg Tablet) 5 mg PO Q4H PRN PRN Reason: Pain, Severe (Pain Scale 7-10) Last Admin: 09/28/23 20:32 Dose: 5 mg Documented By: WILMA Pharmacy Consult (Consult Rx Etoh Phenob Im/Po) 1 each MISCELLANE ONCE PRN; Protocol PRN Reason: Consult order Phenobarbital (Phenobarbital 30 Mg Tablet) 30 mg PO BID [facility] Stop: 09/30/23 21:01 Last Admin: 09/29/23 08:41 Dose: 30 mg Documented By: MELE Phenobarbital (Phenobarbital 15 Mg Tablet) 15 mg PO DAILY [facility] Stop: 10/02/23 09:01 Sodium Chloride (0.9 % Sodium Chloride Flush 3 Ml Syringe) 3 ml IVFLUSH QSHIFT [facility] Last Admin: 09/29/23 08:41 Dose: 3 ml Documented By: MELE Tramadol HCl (Tramadol Hcl 50 Mg Tablet) 50 mg PO Q6H PRN PRN Reason: Pain, Severe (Pain Scale 7-10) Last Admin: 09/27/23 22:39 Dose: 50 mg Documented By: ROSENDO Labs 09/28/23 11:08 09/28/23 11:08 Labs: Laboratory Results - last 24 hr 09/28/23 11:08 MCV 94.1 MCH 34.8 H MCHC 36.9 H RDW 11.4 Plt Count 157 L MPV 10.1 Absolute Nucleated RBC 0.000 Nucleated RBC % (auto) 0.0 Anion Gap 13 Estim Creat Clear Calc 99.7 Estimated GFR > 60 Random Glucose 128 H Calcium 8.7 Assessment and Plan (1) Generalized tonic-clonic seizure: Status: Acute Plan 48-year-old male with no pertinent past medical history and not on prescription medications who was brought to the emergency department for evaluation of seizures. Right shoulder pain patient reports a popping with movement shoulder xray neg for fx or disclocation ortho consult Seizure, generalized tonic-clonic alcohol withdrawal seizure. Had 2 seizure episodes on the day of presentation. Patient given 1500 mg IV Keppra, evening of 09/25. Consulted Neurology>start Keppra 750mg BID MRI, no acute changes no significant abnormality on EEG Right thigh hematoma CT scan done at outside facility with 15 cm intramuscular hematoma within the vastus intermedius. Consulted General surgery> no surgical intervention required Analgesics p.r.n. ambulate Alcohol use disorder Concern for alcohol withdrawal seizure. continue Phenobarb protocol IV thiamine, folate, MVI Addiction Team following Elevated transaminases Hepatic steatosis on abdominal imaging. Outpatient follow-up DVT prophylaxis: Mechanical Attending Dr. Pete Full code continue hospital stay for evaluation of generalized tonic-clonic seizure and hematoma (as above), which is not possible in a lesser acute setting. Specialist consult pending Quality Stroke Does the patient have a stroke diagnosis?: No VTE Prior VTE?: No VTE Risk Level:: Medical - moderate - high VTE Device Contraindication: Treatment Not Indicated VTE Drug Contraindication: N/A - Med Ordered
--- NOTE | 2023-09-29 09:08 | PM.EVENT ---
Event Note Date of Service: 09/29/23 Event Note: x-rays reviewed of the right shoulder negative for any acute fracture or dislocation No acute orthopedic intervention is needed at this time May f/u in the out patient office for further evaluation and treatment Time Spent With Patient Time: Total time managing care of this patient today ____ minutes.
--- NOTE | 2023-09-29 09:17 | P.CONOP_ITS ---
History of Present Illness [facility] Consult date: 09/29/23 Chief complaint: Seizures Narrative: 48 yo male who was admitted to the medicine service after sustaining an alcoholic withdrawal related seizure causing him to fall. He reported to the medicine service that his right shoulder has been causing him pain after the fall. An x-rays was obtained and negative for any fracture dislocation. Orthopedics was consulted for further evaluation and treatment. Review of Systems 2 Review of Systems: Yes all other systems are reviewed and are negative PMFSH Past Medical History Medical History Alcohol abuse Social History Social History Household Members: Family Housing: House Do you presently have visiting nurse or other home services: No Alcohol intake: current Alcohol intake frequency: 3 or more drinks per day Alcohol type: wine and hard liquor Comment: Allowing alarms intermittently. Patient Tobacco Use Status: Former Tobacco user Tobacco use type: Cigarette service: No Current occupational status: employed Current occupation: maintenance/ right hand dominant Meds Allergies Allergy/AdvReac Type Severity Reaction Status Date / Time No Known Allergies Allergy Verified 09/26/23 21:29 Active Medications: Current Medications Acetaminophen (Acetaminophen 325 Mg Tablet) 650 mg PO Q6H PRN PRN Reason: Pain, Mild (Pain Scale 1-3) Folic Acid (Folic Acid 1 Mg Tablet) 1 mg PO DAILY [facility] Last Admin: 09/29/23 08:41 Dose: 1 mg Thiamine HCl 100 mg/ Sodium (Chloride) 101 mls @ 202 mls/hr IV DAILY [facility] Last Admin: 09/29/23 08:40 Dose: 202 mls/hr Levetiracetam (Levetiracetam 250 Mg Tablet) 750 mg PO BID [facility] Last Admin: 09/29/23 08:41 Dose: 750 mg Melatonin (Melatonin 3 Mg Tablet) 6 mg PO BEDTIME PRN PRN Reason: Insomnia Last Admin: 09/28/23 20:32 Dose: 6 mg Morphine Sulfate (Morphine Sulfate 2 Mg/Ml Cartridge) 1 mg IVPUSH Q4H PRN; Protocol PRN Reason: Pain, Moderate(Pain Scale 4-6) Last Admin: 09/29/23 00:26 Dose: 1 mg Multivitamins/Vitamin C (Multivitamin Tablet) 1 tab PO BEDTIME [facility] Last Admin: 09/28/23 20:32 Dose: 1 tab Ondansetron HCl (Ondansetron Hcl 4 Mg/2 Ml Vial) 4 mg IVPUSH Q8H PRN PRN Reason: Nausea and Vomiting Oxycodone HCl (Oxycodone Hcl Immed Release 5 Mg Tablet) 5 mg PO Q4H PRN PRN Reason: Pain, Severe (Pain Scale 7-10) Last Admin: 09/28/23 20:32 Dose: 5 mg Pharmacy Consult (Consult Rx Etoh Phenob Im/Po) 1 each MISCELLANE ONCE PRN; Protocol PRN Reason: Consult order Phenobarbital (Phenobarbital 30 Mg Tablet) 30 mg PO BID [facility] Stop: 09/30/23 21:01 Last Admin: 09/29/23 08:41 Dose: 30 mg Phenobarbital (Phenobarbital 15 Mg Tablet) 15 mg PO DAILY [facility] Stop: 10/02/23 09:01 Sodium Chloride (0.9 % Sodium Chloride Flush 3 Ml Syringe) 3 ml IVFLUSH QSHIFT [facility] Last Admin: 09/29/23 08:41 Dose: 3 ml Tramadol HCl (Tramadol Hcl 50 Mg Tablet) 50 mg PO Q6H PRN PRN Reason: Pain, Severe (Pain Scale 7-10) Last Admin: 09/27/23 22:39 Dose: 50 mg Home Medications ?Medication ?Instructions ?Recorded ?Confirmed ?Last Taken ?Type No Known Home Meds 11/10/22 09/27/23 Unknown History Physical Exam 2 Vital Signs: Vital Signs: Last Vital Signs Temp 98.3 F 09/29/23 07:47 Pulse 85 09/29/23 07:47 Resp 17 09/29/23 07:47 BP 130/82 09/29/23 07:47 Pulse Ox 95 09/29/23 07:47 O2 Del Method Room Air 09/29/23 07:47 BMI result Body Mass Index 31.1 Const: General: cooperative, healthy appearing and no acute distress Resp: Effort & Inspection: normal respiratory effort and able to speak in complete sentences Cardio: Rate: regular rate Peripheral pulses: Peripheral pulses 2+ throughout GI: Palpation (GI): Soft to palpation Skin: Lesions: no lesions Rashes: no rashes Extrem: Other: right shoulder full ROM with FF and ABD. negative drop arm. Negative empty can. NVI. Ecchymosis noted on the posterior aspect of the shoulder with palpable hematoma. Results Labs 09/28/23 11:08 09/28/23 11:08 Labs: Abnormal lab results 09/28/23 Range/Units 11:08 WBC 14.1 H (4.8-10.8) X10*3/uL RBC 3.05 L (4.60-5.80) X10*6/uL Hgb 10.6 L (14.0-18.0) g/dl Hct 28.7 L (42.0-52.0) % MCH 34.8 H (27.0-33.0) pg MCHC 36.9 H (31.0-36.0) g/dl Plt Count 157 L (160-400) X10*3/uL Sodium 134 L (135-145) mmol/L Random Glucose 128 H (60-115) mg/dL H & H 09/27/23 09/28/23 Range/Units 07:23 11:08 Hgb 11.5 L 10.6 L (14.0-18.0) g/dl Hct 31.7 L 28.7 L (42.0-52.0) % All other labs normal. Assessment and Plan (1) Contusion of right shoulder: Status: Acute Gentle ROM No immonbilization required x-rays reviewed are negative for acute fx or dislocation out patient followup as needed Procedures Date of Service Date of Service: 09/29/23
--- NOTE | 2023-09-29 15:07 | MHC.CM.PN ---
per rounds pt may dc today dc plan [facility] home
[2023-09-29 15:25] VITALS: BP 127/78; PULSE 86; RESP 18; TEMP 36.4; O2SAT 97
[2023-09-29 19:03] VITALS: BP 124/74; PULSE 87; RESP 18; TEMP 36.9; O2SAT 98
[2023-09-29] MEDS: Melatonin 3 MG TABLET 6 MG PO (21:03)
[2023-09-29] MEDS: Multivitamin TABLET 1 TAB PO (21:03)
[2023-09-30] MEDS: oxyCODONE HCl Immed Release 5 MG TABLET PO (02:45)
[2023-09-30 02:57] VITALS: BP 116/66; PULSE 83; RESP 16; TEMP 37.1; O2SAT 98
[2023-09-30 07:54] VITALS: BP 117/70; PULSE 79; RESP 17; TEMP 36.4; O2SAT 96
--- NOTE | 2023-09-30 07:57 | PM.PNGS ---
Subjective Subjective Date of Service: 09/30/23 Interval history: some pain on right thigh otherwise says he is doing ok no seizure episodes reported Physical Exam Vital Signs: Vital Signs: Last Vital Signs Temp 98.8 F 09/30/23 02:57 Pulse 83 09/30/23 02:57 Resp 16 09/30/23 02:57 BP 116/66 09/30/23 02:57 Pulse Ox 98 09/30/23 02:57 O2 Del Method Room Air 09/30/23 02:57 BMI result Body Mass Index 31.1 Const: General: comfortable and no acute distress Resp: Effort & Inspection: normal respiratory effort Cardio: Rate: regular rate GI: Palpation (GI): Soft to palpation Extrem: Other: right thigh edema, soft, no skin changes, no suggestion of vascular compromise Objective Data Active Medications Acetaminophen (Acetaminophen 325 Mg Tablet) 650 mg PO Q6H PRN PRN Reason: Pain, Mild (Pain Scale 1-3) Folic Acid (Folic Acid 1 Mg Tablet) 1 mg PO DAILY [facility] Last Admin: 09/29/23 08:41 Dose: 1 mg Documented By: MELE Thiamine HCl 100 mg/ Sodium (Chloride) 101 mls @ 202 mls/hr IV DAILY [facility] Last Infusion: 09/29/23 09:37 Dose: Infused Documented By: MELE Levetiracetam (Levetiracetam 250 Mg Tablet) 750 mg PO BID [facility] Last Admin: 09/29/23 21:03 Dose: 750 mg Documented By: WILMA Melatonin (Melatonin 3 Mg Tablet) 6 mg PO BEDTIME PRN PRN Reason: Insomnia Last Admin: 09/29/23 21:03 Dose: 6 mg Documented By: WILMA Morphine Sulfate (Morphine Sulfate 2 Mg/Ml Cartridge) 1 mg IVPUSH Q4H PRN; Protocol PRN Reason: Pain, Moderate(Pain Scale 4-6) Last Admin: 09/29/23 00:26 Dose: 1 mg Documented By: WILMA Comments: unable to scan aaron RN threw away with waste on accident. Witnessed by MANJU Jeter Multivitamins/Vitamin C (Multivitamin Tablet) 1 tab PO BEDTIME [facility] Last Admin: 09/29/23 21:03 Dose: 1 tab Documented By: WILMA Ondansetron HCl (Ondansetron Hcl 4 Mg/2 Ml Vial) 4 mg IVPUSH Q8H PRN PRN Reason: Nausea and Vomiting Oxycodone HCl (Oxycodone Hcl Immed Release 5 Mg Tablet) 5 mg PO Q4H PRN PRN Reason: Pain, Severe (Pain Scale 7-10) Last Admin: 09/30/23 02:45 Dose: 5 mg Documented By: WILMA Pharmacy Consult (Consult Rx Etoh Phenob Im/Po) 1 each MISCELLANE ONCE PRN; Protocol PRN Reason: Consult order Phenobarbital (Phenobarbital 30 Mg Tablet) 30 mg PO BID [facility] Stop: 09/30/23 21:01 Last Admin: 09/29/23 21:03 Dose: 30 mg Documented By: WILMA Phenobarbital (Phenobarbital 15 Mg Tablet) 15 mg PO DAILY [facility] Stop: 10/02/23 09:01 Sodium Chloride (0.9 % Sodium Chloride Flush 3 Ml Syringe) [facility] Last Admin: 09/29/23 21:06 Dose: 3 ml Documented By: WILMA Tramadol HCl (Tramadol Hcl 50 Mg Tablet) 50 mg PO Q6H PRN PRN Reason: Pain, Severe (Pain Scale 7-10) Last Admin: 09/27/23 22:39 Dose: 50 mg Documented By: ROSENDO Labs 09/28/23 11:08 09/28/23 11:08 Procedures Date of Service Date of Service: 09/30/23 Progress Note: A&P Assessment and plan (1) Hematoma of right thigh: Status: Acute Assessment and Plan: seems to be doing well hematoma appears stable with limitation of ROM at knee because of pain will benefit from PT follow Hg clinically looks well Time Spent With Patient Time: Total time managing care of this patient today ____ minutes. Quality Stroke Does the patient have a stroke diagnosis?: No VTE Prior VTE?: No VTE Risk Level:: Medical - moderate - high VTE Device Contraindication: Treatment Not Indicated VTE Drug Contraindication: N/A - Med Ordered
[2023-09-30] MEDS: Thiamine HCL 100 MG in 0.9 % Sodium Chloride 100 ML 202 MG IV (08:10)
[2023-09-30] MEDS: levETIRAcetam 250 MG TABLET 750 MG PO (08:11)
[2023-09-30] MEDS: Folic Acid 1 MG TABLET PO (08:11)
[2023-09-30] MEDS: PHENobarbitaL 30 MG TABLET PO (08:11)
[2023-09-30] MEDS: 0.9 % Sodium Chloride Flush 3 ML SYRINGE IVFLUSH (08:12)
--- NOTE | 2023-09-30 13:05 | P.DS_ITS ---
DS: Providers Provider Date of Service: 09/30/23 Date of admission: 09/26/23 22:19 Date of discharge: 09/30/23 Primary care physician: Unknown Physician Consults: 09/26/23 22:18 Addiction Medicine Routine Consulting Provider: Addiction Covering Reason for consultation: alcohol use disorder Consult to Neurology Routine Consulting Provider: [facility] Reason for consultation: seizure 09/26/23 22:33 Consult to General Surgery Routine Consulting Provider[place] [facility] [place] Reason for consultation: Right thigh hematoma 09/28/23 07:42 Consult to Wound Care Routine Reason for consultation: Abrasion to right shoulder. 09/29/23 09:02 Consult to Orthopedics Routine Consulting Provider[place] [facility] [place] Reason for consultation: right shoulder pain, pops out Attending physician on discharge: Elier Pete DS: Diagnosis Discharge Diagnosis (1) Hematoma of right thigh: Status: Acute DS: Summary Hospital Course Hospital Course: From H&P on the day of admission This is a 48-year-old male with no pertinent past medical history and not on prescription medications who was brought to the emergency department for evaluation of seizures. Patient was watching his son play soccer when he had an episode of tonic-clonic seizure. Patient rolled on for levels and hit his head. He was taken to an ER in [place], [place]. Patient stated that he drinks alcohol every day but as per the , patient consumes about 3-4 drinks every day and has not had a drink in the last couple of days due to the [place] trip. Patient had a 2nd episode of seizure in the ER which was witnessed by ER provider in [place]. Hospitalist at [facility] requested transfer due to lack of neurology backup. Patient requested transfer to [facility] as family lives in [place]. Patient complains of right thigh pain at the time of my evaluation. He does not remember what happened but remembers falling down and hitting his head. States he had 1 episode of seizure as a child but is not on any antiepileptics. Admits daily alcohol use but denies any previous alcohol withdrawal. No hallucinations, tremors or anxiety. In the emergency department, patient was initiated on phenobarb protocol. Patient was given 1500 mg IV Keppra and 4 mg IV Ativan at outside facility before being transferred [place] [facility] [place] Imaging done at outside facility: -CT right lower extremity-15 cm intramuscular hematoma within the vastus intermedius muscle at the anterior right thigh -CT abdomen/pelvis- No acute findings. Hepatic steatosis -CT head- No acute intracranial findings. Frontal scalp hematoma -CT cervical spine- No acute findings. No fracture Right shoulder pain shoulder xray neg for fx or disclocation Seen by Orthopedic Service, no acute intervention required, pain may be due to hematoma. Will be discharged home with physical therapy services. Seizure, generalized tonic-clonic Due to alcohol withdrawal seizure. Patient given 1500 mg IV Keppra, evening of 09/25. Consulted Neurology and was started on Keppra 750mg BID. MRI of the brain with and without contrast was obtained and revealed no acute intracranial abnormalities. no significant abnormality on EEG. Recommend to avoid driving for the next 6 months at least. Will need outpatient follow-up with Neurology Right thigh hematoma CT scan done at outside facility with 15 cm intramuscular hematoma within the vastus intermedius. Consulted General surgery> no surgical intervention required Alcohol use disorder Seizure due to alcohol withdrawal seizure. Treated with phenobarbital protocol. Seen by the addiction Medicine team, discussed recovery resources and supports, patient not interested in referral at this time. Recommend to abstain from alcohol intake Elevated transaminases Hepatic steatosis on abdominal imaging. Outpatient follow-up recommended Time Attestation Discharge Coordination Time (in mins): 36 Quality: Safe Use of Opioids Does Pt have an Active Cancer Diagnosis on the Problem List?: No Quality: Stroke Does the patient have a stroke diagnosis?: No Physical Exam Vital Signs: Vital Signs: Last Vital Signs Temp 97.6 F 09/30/23 07:54 Pulse 79 09/30/23 07:54 Resp 17 09/30/23 07:54 BP 117/70 09/30/23 07:54 Pulse Ox 96 09/30/23 07:54 O2 Del Method Room Air 09/30/23 07:54 BMI result Body Mass Index 31.1 Const: General: cooperative, comfortable, no acute distress, alert and awake Nutritional Appearance: average body habitus Orientation/consciousness: patient oriented x3 Resp: Effort & Inspection: normal respiratory effort, able to speak in complete sentences, no respiratory distress and no use of accessory muscles Cardio: Rate: regular rate Skin: Other: Ecchymosis right posterior shoulder Neuro: General: patient oriented x3, moves all extremities and CN's II-XI intact bilaterally Extrem: General: Yes no pedal edema Discharge Plan Discharge Anticipated Discharge Date/Time: 09/30/23 13:16 Patient Disposition: Home Health Service Discharge Diagnosis: Alcohol withdrawal seizure Right shoulder, right thigh hematoma Referrals: Viv Delarosa MD [Physician] - 1 Week Physician,Kurtis Leigh [Primary Care Provider] - 1 Week Discharge Medications: New levetiracetam 250 mg Tablet 750 mg PO BID 90 Days Qty: 540 0RF folic acid 1 mg Tablet 1 mg PO DAILY 30 Days Qty: 30 0RF thiamine HCl (vitamin B1) 100 mg tablet 100 mg PO DAILY 30 Days Qty: 30 0RF No Action No Known Home Meds Discharge Orders: Discharge Order (Routine); Ordered 09/30/23 Ordered By: Sarah George Activity on Discharge: As tolerated Stand Alone Forms: Patient Portal Discharge page Print Language: Vietnamese Other Ambulatory Orders: Complete Blood Count no Diff (Routine) Timeframe: [id number] Facility: [facility] - Location: Laboratory Ordered By: Sarah George Care Plan Goals: See below Health Concerns: Alcohol withdrawal seizure Right shoulder/right thigh hematoma Alcohol use disorder Elevated transaminases/hepatic steatosis Plan of Treatment: Recommend outpatient follow-up with PCP You have been started on seizure medication, take as prescribed No driving or bathing/swimming alone Call to schedule outpatient follow-up with neurologist He will be discharged home with physical therapy services. Continue using walker Recommend to avoid alcohol intake Assessment: See discharge summary
--- NOTE | 2023-09-30 13:28 | W.MHC.F2F ---
Service Date Service Date: 09/30/23 Encounter Date of encounter: 09/30/23 Reasons for Services Signs and symptoms assessed: Needs physical therapy services due to right shoulder, right leg pain due to hematoma Reason for physical therapy: home safety and mobility and therapeutic exercises Overseeing Care: Ally Biggs Homebound: Leaving the home is medically contraindicated at this time without the asist of a device and/or another person due th the listed conditions above and below. Reason homebound: unsteady gait / fall risk and weakness related to hospital stay Certification: Based on the above findings, I certify that this patient is confined to the home and needs intermittent long-term care, physical therapy and/or speech therapy, or continues to need occupational therapy. The patient is under my care, and I have initiated the establishment of the plan of care. The patient will be followed by a physician who will periodically review the plan of care. Time Spent With Patient Time: Total time managing care of this patient today ____ minutes.
--- NOTE | 2023-09-30 13:34 | MHC.CM.PN ---
Addendum entered by Ebony Allison 09/30/23 16:17: CM CALLED PT [phone] AND INFORMED HIM OF ACCEPTING [facility] AND [facility] FOR WEDNESDAY Addendum entered by Ebony Allison 09/30/23 16:14: [facility] HAS ACCEPTED REFERRAL Addendum entered by Ebony Allison 09/30/23 15:39: CM MET WITH PT TO DISCUSS DC PLANNING HE IS AWARE SEVERAL [facility] REFERRALS WERE MADE AND THUS FAR NO ONE HAS ACCEPTED HE STATES IF A VNA CANNOT BE OBTAINED, HE COULD DO OUTPATIENT THERAPY IF NEEDED PHYSICAL THERAPIST ALSO PROVIDING HANDOUTS PT IS AWARE CM WILL CALL HIM WHEN V[facility] RESPONSES COME IN HIS AUNT IS PRESENT TO TRANSPORT Original Note: PT RECOMMENDING STR VS HOME PT CM MET WITH PT WHO SAYS HE WOULD PREFER TO DC HOME AND IS AGREEABLE TO V[facility] HE DOES NOT KNOW THE NAME OF HIS PCP, BUT SAYS HE GOES [facility] IN [place] CM CALLED [facility] [phone] AND WAS INFORMED PT SEES [facility] REFERRALS ARE OUT, SO FAR NO ONE HAS ACCEPTED
[2023-09-30 15:00] VITALS: BP 113/66; PULSE 84; RESP 18; TEMP 36.6; O2SAT 97
== END 2023-09-30 16:00 | disposition home health service (06) | DRG 775 ==
LOC: HO.ED 22:17 → HO.EDOVER 22:25 → HO.S3 09-27 03:25
PROVIDERS: Nurse Practitioner Acute Care; Admitting Provider Student in an Organized Health Care Education/Training Program; Emergency Provider Emergency Medicine; PCP Nurse Practitioner Family; Visit Provider Physician Assistant Medical
DX: F10.239 Alcohol dependence with withdrawal, unspecified (principal); K76.0 Fatty (change of) liver, not elsewhere classified; R56.9 Unspecified convulsions; S40.011A Contusion of right shoulder, initial encounter; S70.11XA Contusion of right thigh, initial encounter; W19.XXXA Unspecified fall, initial encounter; Z87.891 Personal history of nicotine dependence
CPT/HCPCS: 36415; 70553; 73020; 80048; 80076; 80307; 82550; 83735; 85025; 85027; 86803; 87389; 95816; 97116; 97161; 99285; A9585; J2270; J2560; J3411

== ENCOUNTER → 2023-09-26 22:19 | Outpatient (BNV) | payer OTHER, SELFPAY | PROVIDERS: Admitting Provider Student in an Organized Health Care Education/Training Program; Emergency Provider Emergency Medicine; Visit Provider Surgery | DX: S70.11XA Contusion of right thigh, initial encounter (principal) | CPT/HCPCS: 99222; 99232 ==

== ENCOUNTER → 2023-09-26 22:19 | Outpatient (BNV) | payer OTHER, SELFPAY | PROVIDERS: Admitting Provider Student in an Organized Health Care Education/Training Program; Emergency Provider Emergency Medicine; Visit Provider Psychiatry & Neurology Neurology | DX: G40.409 Other generalized epilepsy and epileptic syndromes, not intractable, without status epilepticus (principal) | CPT/HCPCS: 99222 ==

== ENCOUNTER → 2023-09-26 22:19 | Outpatient (BNV) | payer OTHER, SELFPAY | PROVIDERS: Admitting Provider Student in an Organized Health Care Education/Training Program; Emergency Provider Emergency Medicine; Visit Provider Student in an Organized Health Care Education/Training Program | DX: S70.11XA Contusion of right thigh, initial encounter (principal) | CPT/HCPCS: 99223; 99232; 99239; G0180 ==

== ENCOUNTER → 2023-09-26 22:19 | Outpatient (BNV) | payer OTHER, SELFPAY | PROVIDERS: Admitting Provider Student in an Organized Health Care Education/Training Program; Emergency Provider Emergency Medicine; Visit Provider Physician Assistant | DX: S40.011A Contusion of right shoulder, initial encounter (principal) | CPT/HCPCS: 99221; 99499 ==